=== PATIENT | female | born 1995 | race Caucasian/White ===

== ENCOUNTER 2021-04-15 03:27 | Emergency (ER) | payer OTHER, SELFPAY ==
[2021-04-15 08:19] LABS: Absolute Lymphocytes (CBC) 3.1 K/uL (0.7-4.9); Basophils % 0.2 % (0-1.3); MPV 7.2 fL (7.6-11.3); RBC Red Blood Cell Count 5.32 M/uL (3.86-4.86)
[2021-04-15 08:32] LABS: ALT/SGPT 63 U/L (12-78); AST/SGOT 42 U/L (15-37); Albumin 3.8 g/dL (3.4-5.0); Alkaline Phosphatase 111 U/L (45-117); BUN Blood Urea Nitrogen 9 mg/dL (7-18); Bicarbonate 27 mmol/L (21-32); Bilirubin Total 0.6 mg/dL (0.2-1.0); Glucose Level 292 mg/dL (74-106); Potassium 3.8 mmol/L (3.5-5.1); Protein, Total 7.9 g/dL (6.4-8.2); Sodium Level 137 mmol/L (136-145)
--- NOTE | 2021-04-15 09:12 | RAD REPORT ---
EXAM DESCRIPTION: US - Transvaginal Study Probe - 04/15/2021 7:54 am CLINICAL HISTORY: vaginal bleeding, IUD placement Pelvic pain. COMPARISON: No comparisons FINDINGS: The uterus is normal in size, shape and echotexture. The uterus measures 6.7 x 4.2 x 3.8 c m. IUD noted in appropriate location within the endometrial canal. Neither ovary was well seen due to bowel shadowing. No adnexal masses. No significant pelvic ascites. IMPRESSION: IUD is appropriately located in the fundal endometrium.
--- NOTE | 2021-04-15 09:56 | ER ---
Nurse's Notes [facility] Name: Gregorio Szymanski Age: 25 yrs Sex: Female : 1995 Arrival Date: 04/15/2021 Time: 03:31 Bed 15 Private MD: Diagnosis: Abnormal uterine and vaginal bleeding, unspecified Presentation: 04/15 04:09 Chief complaint: Patient states: Pt states she believes her IUD (implanted 02/11/2021) wg may have become dislodged. States she is on her period and thought her flow was slightly heavier than normal. Pt states that it digitally feels like the IUD is lower. Pt denies any trauma. Pt states she has mild discomfort. Pt denies any other symptoms/complaints. Coronavirus screen: Client denies travel out of the [place] in the last 14 days. At this time, the client does not indicate any symptoms associated with coronavirus-19. The client reports previous COVID testing was negative. Date of collection: February 10, 2021. Ebola Screen: Patient negative for fever greater than or equal to 101.5 degrees Fahrenheit, and additional compatible Ebola Virus Disease symptoms Patient denies exposure to infectious person. Patient denies travel to an Ebola-affected area in the 21 days before illness onset. No symptoms or risks identified at this time. 04:09 Method Of Arrival: Ambulatory wg 04:14 Initial Sepsis Screen: Does the patient meet any 2 criteria? No. Patient's initial wg sepsis screen is negative. Does the patient have a suspected source of infection? No. Patient's initial sepsis screen is negative. Risk Assessment: Do you want to hurt yourself or someone else? Patient reports no desire to harm self or others. Onset of symptoms was April 15, 2021 at 02:00. Care prior to arrival: None. Activity prior to arrival: None. Mechanism of Injury: No Mechanism of Injury. 04:14 Acuity: DENZEL 4 wg Triage Assessment: 04:15 General: Appears in no apparent distress. Behavior is calm, cooperative, appropriate wg for age. Pain: Pain currently is 3 out of 10 on a pain scale. EENT: No deficits noted. Neuro: No deficits noted. Cardiovascular: No deficits noted. Respiratory: No deficits noted. GI: No deficits noted. : Reports pain Pain is 3 out of 10 on a pain scale. vaginal bleeding that is moderate flow. Derm: No deficits noted. Musculoskeletal: No deficits noted. 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 - Social history:: Smoking status: Patient denies any tobacco usage or history of. Patient uses alcohol, but reports only rare drinking. The patient lives with spouse. - Family history:: not pertinent. - Code Status:: Full code. - Coronavirus screen:: The patient has NOT traveled to [place] in the past 14 days. The patient has NOT had contact with known/suspected case of Coronavirus?. - Ebola Screening: : Patient negative for fever greater than or equal to 101.5 degrees Fahrenheit, and additional compatible Ebola Virus Disease symptoms Patient denies exposure to infectious person Patient denies travel to an Ebola-affected area in the 21 days before illness onset No symptoms or risks identified at this time. Assessment: 08:05 General: Appears in no apparent distress. obese, well groomed, unkempt, well nourished. kh1 08:05 Pain: Denies pain. Neuro: No deficits noted. Respiratory: No deficits noted. Denies kh1 shortness of breath at rest. 08:07 Reassessment: assumed care of pt aox3 resp even and unlabored. denies cp. denies sob. kh1 c/o heavy vag bleed and discharge times 1 week. states feel like she can touch IUD. No acute distress noted \T\ this time. 08:17 Reassessment: sleeping quietly in bed. easy to arouse. denies cp denies sob at this kh1 time. NC in place. voices no co,plaints at this time. Vital Signs: 04:09 BP 123 / 72; Pulse 92; Resp 18; Temp 98.5; Pulse Ox 100% on R/A; Weight 172.37 kg; wg Height 5 ft. 4 in. (162.56 cm); Pain 3/10; 07:52 BP 142 / 96; Pulse 113; Resp 22; Temp 99.0(TE); kh1 04:09 Body Mass Index 65.23 (172.37 kg, 162.56 cm) ED Course: 03:31 Patient arrived in ED. bp1 04:15 Triage completed. wg 04:15 Arm band placed on right wrist. wg 07:05 Robbin De Dios PA is PHCP. phil 07:05 Sherif Combs MD is Attending Physician. phil 07:13 Jess Ch is Primary Nurse. kh1 07:51 Transvaginal Study Probe In Process Unspecified. EDMS 08:07 Inserted saline lock: 20 gauge in right antecubital area, using aseptic technique. kh1 Blood collected. 10:51 IV discontinued, intact, bleeding controlled, No redness/swelling at site. Pressure kh1 dressing applied. Administered Medications: No medications were administered Outcome: 09:56 Discharge ordered by . phil 10:51 Discharged to home ambulatory. kh1 10:51 Condition: stable 10:51 Discharge instructions given to patient, Instructed on discharge instructions, follow up and referral plans. Demonstrated understanding of instructions, follow-up care. 10:52 Patient left the ED. kh1 Signatures: Dispatcher [employer] Robbin Vernon PA PA jmm Paniauga, Brittany bp1 Jess Ch kh1 Grayson Lockhart
--- NOTE | 2021-04-15 09:57 | EDPHYS ---
Physician Documentation [facility] Name: Gregorio Szymanski Age: 25 yrs Sex: Female : 1995 Arrival Date: 04/15/2021 Time: 03:31 Bed 15 Private MD: Sherif Park HPI: 04/15 07:36 This 25 yrs old Female presents to ER via Ambulatory with complaints of jmm Vaginal Bleeding, IUD coming out. 07:36 The patient presents with vaginal bleeding that is. Onset: The symptoms/episode jmm began/occurred gradually, 1 week(s) ago. Modifying factors: The symptoms are alleviated by nothing, the symptoms are aggravated by pressure. Associated signs and symptoms: Pertinent positives: vaginal bleeding. Is a 25-year-old female with history of diabetes mellitus, asthma, GERD that presents emerged department with complaints of abnormal vaginal bleeding beginning approximately 1 week ago. Patient states she has some concerns that her IUD, which was placed and January of this year, may not be in her uterus correctly. Patient states she attempted to palpate her cervix and developed increased bleeding. 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 - Social history:: Smoking status: Patient denies any tobacco usage or history of. Patient uses alcohol, but reports only rare drinking. The patient lives with spouse. - Family history:: not pertinent. - Code Status:: Full code. - Coronavirus screen:: The patient has NOT traveled to [place] in the past 14 days. The patient has NOT had contact with known/suspected case of Coronavirus?. - Ebola Screening: : Patient negative for fever greater than or equal to 101.5 degrees Fahrenheit, and additional compatible Ebola Virus Disease symptoms Patient denies exposure to infectious person Patient denies travel to an Ebola-affected area in the 21 days before illness onset No symptoms or risks identified at this time. ROS: 07:36 Constitutional: Negative for fever, chills, and weight loss, Cardiovascular: Negative [facility] for chest pain, palpitations, and edema, Respiratory: Negative for shortness of breath, cough, wheezing, and pleuritic chest pain. 07:36 : Positive for vaginal bleeding. 07:36 All other systems are negative. Exam: 07:36 Constitutional: This is a well developed, well nourished patient who is awake, alert, jmm and in no acute distress. Head/Face: atraumatic. Eyes: EOMI, no conjunctival erythema appreciated ENT: Moist Mucus Membranes Neck: Trachea midline, Supple Chest/axilla: Normal chest wall appearance and motion. Cardiovascular: Regular rate and rhythm. No edema appreciated Respiratory: Normal respirations, no respiratory distress appreciated Abdomen/GI: Non distended, soft Back: Normal ROM Skin: General appearance color normal MS/ Extremity: Moves all extremities, no obvious deformities appreciated, no edema noted to the lower extremities Neuro: Awake and alert, normal gait Psych: Behavior is normal, Mood is normal, Patient is cooperative and pleasant Vital Signs: 04:09 BP 123 / 72; Pulse 92; Resp 18; Temp 98.5; Pulse Ox 100% on R/A; Weight 172.37 kg; wg Height 5 ft. 4 in. (162.56 cm); Pain 3/10; 07:52 BP 142 / 96; Pulse 113; Resp 22; Temp 99.0(TE); kh1 04:09 Body Mass Index 65.23 (172.37 kg, 162.56 cm) MDM: 07:34 Patient medically screened. [facility] 09:55 Data reviewed: vital signs, nurses notes. Counseling: I had a detailed discussion with leena the patient and/or guardian regarding: the historical points, exam findings, and any diagnostic results supporting the discharge/admit diagnosis, lab results, radiology results, the need for outpatient follow up, to return to the emergency department if symptoms worsen or persist or if there are any questions or concerns that arise at home. ED course: Patient is alert nontoxic in appearance in the ED. H\T\H is within reasonable limits. Ultrasound revealed the IUD is in place. Patient is advised to follow-up with FOLDING MACHINE OPERATOR for further evaluation otherwise given strict return precautions. Patient understood and agrees plan of care.. 04/15 07:35 Order name: CBC with Diff; Complete Time: 08:24 [facility] 04/15 07:35 Order name: CMP; Complete Time: 09:32 [facility] 04/15 07:35 Order name: Saline Lock [facility] 04/15 07:35 Order name: Urine Dipstick-Ancillary (obtain specimen) [facility] 04/15 07:51 Order name: Transvaginal Study Probe; Complete Time: 09:32 [facility] 04/15 07:35 Order name: Urine Test (obtain specimen) [facility] Administered Medications: No medications were administered Disposition: 14:51 Co-signature as Attending Physician, Sherif Combs MD I agree with the assessment and [facility] plan of care. Disposition Summary: 04/15/21 09:56 Discharge Ordered Location: Home [facility] Condition: Stable [facility] Diagnosis - Abnormal uterine and vaginal bleeding, unspecified [facility] Followup: [facility] - With: Private Physician - When: 2 - 3 days - Reason: Recheck today's complaints, Continuance of care, Re-evaluation by your physician Discharge Instructions: - Discharge Summary Sheet [facility] - Abnormal Uterine Bleeding [facility] Forms: - Medication Reconciliation Form [facility] - Thank You Letter [facility] - Antibiotic Education [facility] - Prescription Opioid Use [facility] Signatures: Dispatcher [employer] Sherif Root MD MD cha Mickail, Joel, PA PA Grayson Norton Corrections: (The following items were deleted from the chart) 07:51 07:37 Pelvis Complete+US.RAD.BRZ ordered. ALEX JOHNSON
[2021-04-15 11:17] VITALS: O2SAT 100
[2021-04-15 11:19] VITALS: BP 142/96; TEMP 99
== END 2021-04-15 10:52 | disposition home or self-care (01) ==
LOC: ER 03:27
DX: N93.9 Abnormal uterine and vaginal bleeding, unspecified (principal); E11.9 Type 2 diabetes mellitus without complications; Z88.0 Allergy status to penicillin
CPT/HCPCS: 36415; 76830; 80053; 85025; 99283

== ENCOUNTER 2021-09-07 18:56 | Emergency (ER) | payer OTHER ==
[2021-09-07 21:06] LABS: Absolute Lymphocytes (CBC) 3.1 K/uL (0.7-4.9); Hematocrit 39.9 % (36.0-45.0); Lymphocytes % 26.4 % (15.3-44.8); MPV 6.6 fL (7.6-11.3); RBC Red Blood Cell Count 5.37 M/uL (3.86-4.86)
[2021-09-07 21:09] LABS: Protime INR 1.01
[2021-09-07 21:28] LABS: ALT/SGPT 37 U/L (12-78); AST/SGOT 24 U/L (15-37); Albumin 3.7 g/dL (3.4-5.0); Alkaline Phosphatase 95 U/L (45-117); BUN Blood Urea Nitrogen 9 mg/dL (7-18); Bicarbonate 24 mmol/L (21-32); Bilirubin Direct 0.1 mg/dL (0-0.2); Bilirubin Total 0.4 mg/dL (0.2-1.0); Glucose Level 127 mg/dL (74-106); Magnesium 2.2 mg/dL (1.8-2.4); NT PRO-BNP 15 pg/mL (<125); Protein, Total 8.3 g/dL (6.4-8.2); Sodium Level 138 mmol/L (136-145)
--- NOTE | 2021-09-07 21:47 | RAD REPORT ---
EXAM DESCRIPTION: USExtrem Venous W Compress Bil09/07/2021 9:32 pm CLINICAL HISTORY: Leg swelling COMPARISON: none FINDINGS: The common femoral, superficial femoral, popliteal and posterior tibial veins bilaterally are compressible and demonstrate augmentation. Doppler demonstrates good flow. IMPRESSION: No evidence of deep venous thrombosis involving either lower extremity.
--- NOTE | 2021-09-07 22:39 | EDPHYS ---
Physician Documentation [facility] Name: Gregorio Szymanski Age: 26 yrs Sex: Female : 1995 Arrival Date: 09/07/2021 Time: 19:00 Bed 9 Private MD: ED Physician Justin Rodriguez HPI: 09/07 22:36 This 26 yrs old Female presents to ER via Ambulatory with complaints of Leg Swelling. kb 22:36 The patient presents with a history of heart racing. Context: The symptoms occur at kb rest. Onset: The symptoms/episode began/occurred today. Duration: The patient or guardian reports multiple episodes, that are intermittent, with no pattern. Modifying factors: The symptoms are aggravated by nothing. The symptoms are alleviated by nothing. Associated signs and symptoms: The patient has no apparent associated signs or symptoms. Severity of symptoms: At their worst the symptoms were mild in the emergency department the symptoms have resolved. The patient has not experienced similar symptoms in the past. The patient has not recently seen a physician. Pt reports lower extremity swelling for a while and palpitations that have been intermittent today. Historical: - Allergies: 19:42 PENICILLINS; mk - PMHx: 19:42 Asthma; diabetes mellitus; Gastroesophageal reflux disease; mk - Immunization history:: Adult Immunizations up to date, Client reports receiving the 2nd dose of the Covid vaccine. - Social history:: Smoking status: Patient denies any tobacco usage or history of. ROS: 22:34 Constitutional: Negative for fever, chills, and weight loss. kb 22:34 Cardiovascular: Positive for edema, palpitations, Negative for chest pain. 22:34 All other systems are negative. Exam: 22:34 Constitutional: This is a well developed, well nourished patient who is awake, alert, kb and in no acute distress. Head/Face: Normocephalic, atraumatic. ENT: Moist Mucous membranes Cardiovascular: Regular rate and rhythm with a normal S1 and S2. No gallops, murmurs, or rubs. No pulse deficits. Respiratory: Respirations even and unlabored. No increased work of breathing. Talking in full sentences Skin: Warm, dry with normal turgor. Normal color. Neuro: Awake and alert, GCS 15, oriented to person, place, time, and situation. Moves all extremities. Normal gait. Psych: Awake, alert, with orientation to person, place and time. Behavior, mood, and affect are within normal limits. 22:34 Musculoskeletal/extremity: Extremities: grossly normal except: noted in the right lower leg: pain, swelling, tenderness, ROM: intact in all extremities, Circulation is intact in all extremities. Sensation intact. DVT Exam: pain, of the right leg, swelling, of the right leg, tenderness, of the right leg. Vital Signs: 19:31 BP 128 / 88; Pulse 114; Resp 18; Temp 98.5(O); Pulse Ox 100% on R/A; Height 5 ft. 4 in. mk (162.56 cm) (M); 19:42 Weight 166.01 kg; mk 19:42 Height 5 ft. 4 in. (162.56 cm); mk 22:35 BP 134 / 61; Pulse 112; Resp 18; Pulse Ox 97% on R/A; Pain 0/10; ld1 19:42 Body Mass Index 62.82 (166.01 kg, 162.56 cm) MDM: 20:32 Patient medically screened. kb 22:36 Data reviewed: vital signs, nurses notes. Data interpreted: Pulse oximetry: on room air kb is 97 %. Interpretation: normal. Counseling: I had a detailed discussion with the patient and/or guardian regarding: the historical points, exam findings, and any diagnostic results supporting the discharge/admit diagnosis, lab results, radiology results, the need for outpatient follow up, a family practitioner, to return to the emergency department if symptoms worsen or persist or if there are any questions or concerns that arise at home. 09/07 20:53 Order name: Basic Metabolic Panel; Complete Time: 21:30 kb 09/07 20:53 Order name: CBC with Diff; Complete Time: 21:21 kb 09/07 20:53 Order name: LFT's; Complete Time: 21:30 kb 09/07 20:53 Order name: Magnesium; Complete Time: 21:30 kb 09/07 20:53 Order name: NT PRO-BNP; Complete Time: 21:30 kb 09/07 20:53 Order name: PT-INR; Complete Time: 21:21 kb 09/07 20:53 Order name: Troponin HS; Complete Time: 21:30 kb 09/07 20:53 Order name: XRAY Chest (1 view) kb 09/07 20:53 Order name: EKG; Complete Time: 20:54 kb 09/07 20:53 Order name: Cardiac monitoring; Complete Time: 21:02 kb 09/07 20:53 Order name: EKG - Nurse/Tech; Complete Time: 20:54 kb 09/07 20:53 Order name: IV Saline Lock; Complete Time: 21:01 kb 09/07 20:53 Order name: Labs collected and sent; Complete Time: 21:01 kb 09/07 20:53 Order name: US Extremity Venous W Compression Jason; Complete Time: 21:59 kb 09/07 20:53 Order name: O2 Per Protocol; Complete Time: 21:01 kb 09/07 20:53 Order name: O2 Sat Monitoring; Complete Time: 21:01 kb 09/07 22:19 Order name: Vital Signs; Complete Time: 22:35 kb Administered Medications: No medications were administered Disposition: 09/08 00:37 Co-signature as Attending Physician, Justin Rodriguez MD I agree with the assessment and rn plan of care. Attestation: The patient's history, exam findings, diagnostics, and a summary of any interventions or procedures was reviewed in detail with Tracy MCKEON. Disposition Summary: 09/07/21 22:38 Discharge Ordered Location: Home kb Condition: Stable kb Diagnosis - Palpitations kb - Edema, unspecified kb Followup: kb - With: Emergency Department - When: As needed - Reason: Worsening of condition Followup: kb - With: Private Physician - When: 2 - 3 days - Reason: Recheck today's complaints, Continuance of care, Re-evaluation by your physician Discharge Instructions: - Discharge Summary Sheet kb - Palpitations, [id number] kb - Peripheral Edema kb Forms: - Medication Reconciliation Form kb - Thank You Letter kb - Antibiotic Education kb - Prescription Opioid Use kb Signatures: Dispatcher [employer] Tracy Bianchi FNP-C FNP-Justin Orellana MD MD rn Kotarski, Madeline, RN RN mk
--- NOTE | 2021-09-07 22:39 | ER ---
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 Hx DM, asthma and precancerous uterine cells. Coronavirus screen: Vaccine status: Patient reports receiving the 2nd dose of the covid vaccine. moderna. Ebola Screen: Patient negative for fever greater than or equal to 101.5 degrees Fahrenheit, and additional compatible Ebola Virus Disease symptoms. Initial Sepsis Screen: Does the patient meet any 2 criteria? No. Patient's initial sepsis screen is negative. Does the patient have a suspected source of infection? No. Patient's initial sepsis screen is negative. Risk Assessment: Do you want to hurt yourself or someone else? Patient reports no desire to harm self or others. Onset of symptoms was September 05, 2021. 19:31 Method Of Arrival: Ambulatory 19:31 Acuity: DENZEL 3 Triage Assessment: 19:57 General: Appears in no apparent distress. Behavior is cooperative. Pain: Denies pain. Neuro: Level of Consciousness is awake, alert, obeys commands. Cardiovascular: Heart tones S1 S2 present Capillary refill < 3 seconds in bilateral fingers toes Rhythm is sinus tachycardia. Respiratory: Airway is patent Trachea midline Respiratory effort is even, unlabored. Historical: - Allergies: 19:42 PENICILLINS; mk - PMHx: 19:42 Asthma; diabetes mellitus; Gastroesophageal reflux disease; mk - Immunization history:: Adult Immunizations up to date, Client reports receiving the 2nd dose of the Covid vaccine. - Social history:: Smoking status: Patient denies any tobacco usage or history of. Screenin:41 Abuse screen: Denies threats or abuse. Denies injuries from another. Nutritional ab2 screening: No deficits noted. Tuberculosis screening: No symptoms or risk factors identified. Fall Risk None identified. Assessment: 20:36 General: Appears in no apparent distress. comfortable, Behavior is calm, cooperative, ab2 appropriate for age. Pain: Complains of pain in right leg Pain does not radiate. Pain currently is 4 out of 10 on a pain scale. Neuro: No deficits noted. Level of Consciousness is awake, alert, obeys commands, Oriented to person, place, time, situation, Appropriate for age Medical Imaging Director are equal bilaterally Moves all extremities. Gait is steady, Speech is normal, Facial symmetry appears normal. Cardiovascular: Reports palpitations, Denies chest pain, shortness of breath, Patient's skin is warm and dry. Respiratory: Airway is patent Breath sounds are clear bilaterally. GI: No deficits noted. No signs and/or symptoms were reported involving the gastrointestinal system. : No deficits noted. No signs and/or symptoms were reported regarding the genitourinary system. EENT: No deficits noted. No signs and/or symptoms were reported regarding the EENT system. Derm: Skin temperature is cool Reports increased swelling. Musculoskeletal: Reports weakness in right leg. Vital Signs: 19:31 BP 128 / 88; Pulse 114; Resp 18; Temp 98.5(O); Pulse Ox 100% on R/A; Height 5 ft. 4 in. (162.56 cm) (M); 19:42 Weight 166.01 kg; mk 19:42 Height 5 ft. 4 in. (162.56 cm); mk 22:35 BP 134 / 61; Pulse 112; Resp 18; Pulse Ox 97% on R/A; Pain 0/10; ld1 19:42 Body Mass Index 62.82 (166.01 kg, 162.56 cm) ED Course: 19:00 Patient arrived in ED. mr 19:37 Triage completed. 19:37 Arm band placed on. 20:32 Tracy Mojica [facility]C [facility] kb 20:32 Justin Rodriguez MD is Attending Physician. kb 20:42 Patient has correct armband on for positive identification. Bed in low position. Call ab2 light in reach. 20:42 No provider procedures requiring assistance completed. ab2 21:01 Inserted saline lock: 18 gauge in right antecubital area, using aseptic technique. ab2 Blood collected. 21:02 Basic Metabolic Panel Sent. ab2 21:02 CBC with Diff Sent. ab2 21:02 LFT's Sent. ab2 21:02 Magnesium Sent. ab2 21:02 PT-INR Sent. ab2 21:02 NT PRO-BNP Sent. ab2 21:02 Troponin HS Sent. ab2 21:32 US Extremity Venous W Compression Jason In Process Unspecified. EDMS 21:37 XRAY Chest (1 view) In Process Unspecified. EDMS 23:09 IV discontinued, intact, bleeding controlled, No redness/swelling at site. ld1 Administered Medications: No medications were administered Outcome: 22:38 Discharge ordered by . gino 23:08 Discharged to home ambulatory. ld1 23:08 Condition: stable 23:08 Discharge instructions given to patient, Instructed on discharge instructions, follow up and referral plans. Demonstrated understanding of instructions, follow-up care. 23:10 Patient left the ED. ld1 Signatures: Dispatcher [employer] EDMS Tracy Mojica, LINDA SOLUTION DESIGN AND ANALYSIS MANAGER-Kenya Franklin Lauren, RN RN ld1 Lesley Vila, RN RN Mark Camarillo2
[2021-09-07 23:17] VITALS: TEMP 98.5
[2021-09-07 23:18] VITALS: BP 134/61; O2SAT 97
--- NOTE | 2021-09-08 07:52 | RAD REPORT ---
EXAM DESCRIPTION: RAD - Chest Single View - 09/08/2021 6:48 am CLINICAL HISTORY: PALPITATIONS COMPARISON: No comparisons FINDINGS: Lines: None. Lungs: No evidence of edema or pneumonia. Pleural: No significant pleural effusions or pneumothorax. Cardiac: The heart size is within normal limits. Bones: No acute fractures. Other: IMPRESSION: No acute cardiopulmonary disease.
== END 2021-09-07 23:10 | disposition home or self-care (01) ==
LOC: ER 18:56
DX: R00.2 Palpitations (principal); R60.9 Edema, unspecified; Z88.0 Allergy status to penicillin
CPT/HCPCS: 36415; 71045; 80048; 80076; 83735; 83880; 84484; 85025; 85610; 93005; 93970

== ENCOUNTER 2021-11-13 00:33 | Emergency (ER) | payer OTHER ==
--- OUTSIDE RECORDS SUMMARY | 2021-11-13 00:35 | XMS REPORT | Continuity of Care Document ---
:1995 Author Organization [facility] t Address [address] [place] [address] Care Team Providers Name Role Phone Unavailable Unavailable Unavailable Problems This patient has no known problems. Allergies, Adverse Reactions, Alerts This patient has no known allergies or adverse reactions. Medications This patient has no known medications. Procedures This patient has no known procedures. Results Test Description Test Time Test Comments Results Result Comments Source HEMOGLOBIN A1c 2021-10-05 05:22:37 Test Item Value Reference Range Interpretation Comme nts HEMOGLOBIN A1c (test code = 8.7 % 4.2-5.6 H [employer] 90776) GUIDELINES FOR HGB A1C: PREDIABETES/INC REASED RISK . . . . . . . 5.7-6.4% DIAGNOSIS OF DIABETES . . . . . . . . . >=6.5% WITH CONFIRMATION OR APPROPRIATE SYMPTOMS NOTE: ASSAY MA Y BE AFFECTED BY HEMOGLOBINOPATH IES (SICKLE CELL ANEMIA, S-C DIS EASE, OTHERS) OR ARTIFICIALLY LO WERED BY DECREASED RED CELL SURVIV AL (HEMOLYTIC ANEMIAS, BLOOD LOSS, ETC.). CONSIDER ALTERNATE TESTI NG OR LABORATORY CONSULTATION. COMPREHENSIVE METABOLIC [id number] 04:02:34 Test Item Value Reference Range Interpretation Comments GLUCOSE (test code = 147 MG/DL 70-99 H 2216) BUN (test code = 9 MG/DL -20 2207) CREATININE (test 0.51 MG/DL 0.60-1.30 L code = 2214) eGFR (2020 CKD-EPI) 130 >60 (test code = 90954) ML/MIN/1.73 CALC BUN/CREAT (test 18 RATIO 6-28 code = 2235) SODIUM (test code = 140 MEQ/L 137-159 4791) POTASSIUM (test code 4.5 MEQ/L 3.5-5.4 = 8) CHLORIDE (test code 100 MEQ/L 95-107 = 2215) CARBON DIOXIDE (test 25 MEQ/L 19-31 code = 2206) CALCIUM (test code = 9.4 MG/DL 8.5-10.5 220) PROTEIN, TOTAL (test 7.4 G/DL 6.1-8.3 code = 2229) ALBUMIN (test code = 4.3 G/DL 3.5-5.2 220) CALC GLOBULIN (test 3.1 G/DL 1.9-3.7 code = 2240) CALC A/G RATIO (test 1.4 RATIO 1.0-2.6 code = 2234) BILIRUBIN, TOTAL 0.4 MG/DL See_Comment [Automated message] (test code = 2207) The syste m which generated this result transmit aidan reference range : <=1.2. The refe rence range was not u sed to interpret th is result as normal/abnormal . ALKALINE PHOSPHATASE 93 U/L 40-112 (test code = 2204) AST (test code = 22 U/L 9-40 2217) ALT (test code = 25 U/L 5-40 2218) LIPID [id number] 04:02:34 Test Item Value Reference Range Interpretation Comments CHOLESTEROL (test 194 MG/DL <200 code = 2210) TRIGLYCERIDES (test 185 MG/DL <150 H code = 2232) HDL CHOLESTEROL (test 35 MG/DL >39 L code = 2220) CALC LDL CHOL (test 128 MG/DL <100 H NOTE: C ALCULATED LDL code = 2237) IS BASED ON MELISSA-GARCÍA METHOD WHICHINCLUDES ADJUSTABLE TRIGLYCERIDE:VL DL CHOLESTEROL RAT IO.THIS FACTOR VARIES B Y MEASURED TRIGLY CERIDE AND NON-HDLCHOL ESTEROL CONCENTRATIONS WITH INCREASED CALCU LATED LDL SEENIN HIGH ER TRIGLYCERIDE OR LOWER NON-HDL SPECIME NS. FOR MOREINFORMATION , SEE CLIENT ANNOUNCE MENT AT [email or web address] RISK RATIO LDL/HDL 3.66 RATIO <3.22 H (test code = 2238) HIV 1/2 4TH GEN, RFLX [id number] 03:54:00 Test Item Value Reference Range Interpretation Comments HIV 1/2 4TH GEN, RFLX CONF (test NON-REACTIVE NON-REACTIVE code = 3514) HEPATITIS PANEL, [id number] 03:54:00 Test Item Value Reference Range Interpretation Comments HEPATITIS A IgM (test NON-REACTIVE NON-REACTIVE code = 78212) HEPATITIS B CORE IgM NON-REACTIVE NON-REACTIVE (test code = 4644) HEPATITIS B SURF AG NON-REACTIVE NON-REACTIVE (test code = 2739) HEPATITIS C ANTIBODY NON-REACTIVE NON-REACTIVE (test code = 4675) INTERPRETATION (NOTE) Hepatiti s A HEPATITIS A: (test serology shows no code = 2552) evidence of acu te hepatitis A. INTERPRETATION (NOTE) Hepatiti s B HEPATITIS B: (test serology shows no code = 87646) evidence of ac solomon hepatitis B and no indication of exposure to hepatitis B vir us in the previous si xto eight months. INTERPRETATION (NOTE) Hepatiti s C HEPATITIS C: (test serology shows no code = 36370) evidence of ex posure to hepatitisC v irus at this time. It can take up to 12 months after exposure tothe hepatitis C vir us for antibodies to become detectab le in the blood i n certain patient s. UNLESS OTHE RWISE INDICATED, ALL TESTING PERFORM ED ATCLINICAL PATH [facility], [facility]. [address] [place] [address] 4 UPHOLSTERER HELPER: ZEESHAN SRIVASTAVA M.D. CLIA NUMBER [id number] CAP ACCREDITATION N O. [id number] CBC W/AUTO DIFF WITH [id number] 03:49:45 Test Item Value Reference Range Interpretation Comments WBC (test code = 10.4 K/UL 3.5-11.0 1001) RBC (test code = 5.34 M/UL 3.80-5.40 1002) HEMOGLOBIN (test code 12.8 G/DL 11.5-15.5 = 1003) HEMATOCRIT (test code 38.7 % 34.0-45.0 = 1004) MCV (test code = 72.5 fL 80.0-99.0 L 1005) MCH (test code = 24.0 PG 25.0-33.0 L 1006) MCHC (test code = 33.1 G/DL 31.0-36.0 1007) RDW (test code = 15.7 % 11.5-15.0 H 1038) NEUTROPHILS (test 60.3 % code = 1008) LYMPHOCYTES (test 30.9 % code = 1010) MONOCYTES (test code 4.5 % = 1011) EOSINOPHILS (test 2.9 % code = 1012) BASOPHILS (test code 0.5 % = 1013) IMMATURE GRANULOCYTES 0.9 % (test code = 1036) NUCLEATED RBCS (test 0.0 /100 See_Comment [Autom ated code = 1065) WBC'S message] The sy stem which generated this result transmitted reference range : 0.0. The refere nce range was not u sed to interpret th is result as normal/abnormal . PLATELET COUNT (test 357 K/UL 130-400 code = 1015) ABSOLUTE NEUTROPHILS 6.30 K/UL 1.50-7.50 (test code = 1066) ABSOLUTE LYMPHOCYTES 3.22 K/UL 1.00-4.00 (test code = 1067) ABSOLUTE MONOCYTES 0.47 K/UL 0.20-1.00 (test code = 1068) ABSOLUTE EOSINOPHILS 0.30 K/UL 0.00-0.50 (test code = 1040) ABSOLUTE BASOPHILS 0.05 K/UL 0.00-0.20 (test code = 1069) ABS IMMATURE 0.09 K/UL 0.00-0.10 GRANULOCYTES (test code = 1020) ABS NUCLEATED RBCS 0.00 K/UL 0.00-0.11 (test code = 05853)
[2021-11-13 02:47] LABS: Absolute Lymphocytes (CBC) 2.6 K/uL (0.7-4.9); Hematocrit 38.3 % (36.0-45.0); Lymphocytes % 25.6 % (15.3-44.8); RBC Red Blood Cell Count 5.12 M/uL (3.86-4.86)
[2021-11-13 03:10] LABS: BUN Blood Urea Nitrogen 10 mg/dL (7-18); Bicarbonate 27 mmol/L (21-32); Glucose Level 236 mg/dL (74-106); NT PRO-BNP 12 pg/mL (<125); Potassium 3.6 mmol/L (3.5-5.1); Sodium Level 137 mmol/L (136-145)
[2021-11-13 03:14] LABS: Troponin High Sensitivity < 3.0 pg/mL (<58.9)
[2021-11-13 03:32] LABS: SARS-COV-2 RT PCR NEGATIVE (NEGATIVE)
--- NOTE | 2021-11-13 05:42 | ER ---
Nurse's Notes [facility] Name: Gregorio Szymanski Age: 26 yrs Sex: Female : 1995 Arrival Date: 11/13/2021 Time: 00:35 Bed 16 Private MD: Diagnosis: Palpitations;Pain in left leg;Pain in right leg Presentation: 11/13 00:42 Chief complaint: Patient states: "palpitations since Mumtaz and a cough a few weeks, bjorn since I had Covid". Coronavirus screen: Vaccine status: Patient reports receiving the 2nd dose of the covid vaccine. Patient reports having had a previously documented Covid positive illness. Ebola Screen: Patient negative for fever greater than or equal to 101.5 degrees Fahrenheit, and additional compatible Ebola Virus Disease symptoms Patient denies exposure to infectious person. Patient denies travel to an Ebola-affected area in the 21 days before illness onset. Initial Sepsis Screen: Does the patient meet any 2 criteria? No. Patient's initial sepsis screen is negative. Does the patient have a suspected source of infection? No. Patient's initial sepsis screen is negative. Risk Assessment: Do you want to hurt yourself or someone else? Patient reports no desire to harm self or others. Onset of symptoms was September 21, 2021. 00:42 Method Of Arrival: Ambulatory bjorn 00:42 Acuity: DENZEL 3 bjorn Triage Assessment: 00:45 General: Appears in no apparent distress. comfortable. General: Behavior is calm, bjorn cooperative. Pain: Complains of pain in right leg shooting intermittent pain. 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 - Social history:: Smoking status: Patient denies any tobacco usage or history of. Screenin:02 Abuse screen: Denies threats or abuse. Nutritional screening: No deficits noted. bp Tuberculosis screening: No symptoms or risk factors identified. Never had TB. Fall Risk None identified. Assessment: 03:04 Reassessment: All labs collected and sent. Ekg done. . bp 04:30 Reassessment: Patient appears in no apparent distress at this time. The pt remains in sv1 NAD and I recv'd report on her, from the off-going RN. We are awaiting results, for dispo. Vital Signs: 00:42 BP 119 / 70; Pulse 118; Resp 18; Temp 98.5; Pulse Ox 100% on R/A; Pain 0/10; bjorn 00:48 BP 119 / 70; Pulse 118; Resp 18; Temp 98.5; Pulse Ox 100% on R/A; Pain 0/10; bjorn 03:02 BP 138 / 126 RA Sitting (auto/reg); Pulse 102 MON; Resp 19 S; Pulse Ox 100% on R/A; bp Pain 0/10; 04:23 BP 99 / 62; Pulse 98; Resp 18; Temp 98.5; Pulse Ox 99% on R/A; Pain 0/10; sv1 06:13 BP 106 / 62; Pulse 92; Resp 18; Temp 98.5; Pulse Ox 100% on R/A; Pain 0/10; bjorn ED Course: 00:35 Patient arrived in ED. kc5 00:45 Triage completed. bjorn 00:48 Arm band placed on right wrist. bjorn 00:49 Robbin De Dios PA is PHCP. jmm 00:49 Eron Fortune DO is Attending Physician. jmm 01:47 Dipak Randle, RN is Primary Nurse. bp 01:57 XRAY Chest (1 view) In Process Unspecified. EDMS 02:23 PROBNP Sent. bp 02:32 Basic Metabolic Panel Sent. bp 02:32 CBC with Diff Sent. bp 02:32 Troponin HS Sent. bp 02:54 PROBNP Sent. bp 03:02 Patient has correct armband on for positive identification. bp 03:02 No provider procedures requiring assistance completed. Inserted saline lock: 20 gauge bp in left antecubital area, using aseptic technique. 04:08 US Extremity Venous W Compression Jason In Process Unspecified. EDMS 06:14 intact, bleeding controlled, No redness/swelling at site. Pressure dressing applied. bjorn Administered Medications: No medications were administered Outcome: 04:29 Condition: stable sv1 05:41 Discharge ordered by . ms3 06:14 Discharged to home ambulatory, with family. bjorn 06:14 Discharge instructions given to patient, Instructed on discharge instructions, follow up and referral plans. Demonstrated understanding of instructions, follow-up care. 06:14 Patient left the ED. bjorn Signatures: Dispatcher [employer] EDMS Robbin De Dios PA PA jmm Peltier, Brian, RN RN bp Eron Fortune, DO ms3 Cleopatra Siu kc5 Little Trejo RN RN bjorn Rajiv Abreu RN RN sv1
--- NOTE | 2021-11-13 05:42 | EDPHYS ---
Physician Documentation [facility] Name: Gregorio Szymanski Age: 26 yrs Sex: Female : 1995 Arrival Date: 11/13/2021 Time: 00:35 Bed 16 Private MD: ED Physician Eron Fortune HPI: 11/13 00:53 This 26 yrs old Female presents to ER via Ambulatory with complaints of Palpitations, jmm Leg Pain. 00:53 The patient presents with swelling. jmm 00:53 Onset: The symptoms/episode began/occurred gradually, 2 week(s) ago. Modifying factors: jmm The symptoms are alleviated by nothing. the symptoms are aggravated by nothing. Is a 26-year-old female with history of diabetes mellitus, asthma, GERD that presents emerged department with complaints of progressively worsening lower extremity swelling beginning approximately 1 month ago worsening over the past 2 weeks. Patient states now she has shortness of breath and cough. Also complains of episodes of palpitations. Particular patient has more pain in the right leg around the popliteal region. Denies fever.. 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 - Social history:: Smoking status: Patient denies any tobacco usage or history of. ROS: 00:53 Constitutional: Negative for fever, chills, and weight loss. jmm 00:53 Cardiovascular: Positive for chest pain, palpitations. 00:53 Respiratory: Positive for cough. 00:53 MS/extremity: Positive for swelling. 00:53 All other systems are negative. Exam: 00:53 Constitutional: This is a well developed, well nourished patient who is awake, alert, jmm and in no acute distress. Head/Face: atraumatic. Eyes: EOMI, no conjunctival erythema appreciated ENT: Moist Mucus Membranes Neck: Trachea midline, Supple Chest/axilla: Normal chest wall appearance and motion. Cardiovascular: Regular rate and rhythm. No edema appreciated Respiratory: Normal respirations, no respiratory distress appreciated Abdomen/GI: Non distended, soft Back: Normal ROM Skin: General appearance color normal MS/ Extremity: Moves all extremities, no obvious deformities appreciated, no edema noted to the lower extremities Neuro: Awake and alert Psych: Behavior is normal, Mood is normal, Patient is cooperative and pleasant 02:47 ECG was reviewed by the Attending Physician. ms3 Vital Signs: 00:42 BP 119 / 70; Pulse 118; Resp 18; Temp 98.5; Pulse Ox 100% on R/A; Pain 0/10; bjorn 00:48 BP 119 / 70; Pulse 118; Resp 18; Temp 98.5; Pulse Ox 100% on R/A; Pain 0/10; bjorn 03:02 BP 138 / 126 RA Sitting (auto/reg); Pulse 102 MON; Resp 19 S; Pulse Ox 100% on R/A; bp Pain 0/10; 04:23 BP 99 / 62; Pulse 98; Resp 18; Temp 98.5; Pulse Ox 99% on R/A; Pain 0/10; sv1 06:13 BP 106 / 62; Pulse 92; Resp 18; Temp 98.5; Pulse Ox 100% on R/A; Pain 0/10; bjorn MDM: 00:53 Patient medically screened. [facility] 02:50 Data reviewed: vital signs, nurses notes. Counseling: I had a detailed discussion with braydon the patient and/or guardian regarding: the historical points, exam findings, and any diagnostic results supporting the discharge/admit diagnosis. Transition of care: After a detail discussion of the patient's case, care is transferred to Eron Fortune DO. 05:39 Data reviewed: lab test result(s), radiologic studies, ultrasound. Counseling: I had a ms3 detailed discussion with the patient and/or guardian regarding: the historical points, exam findings, and any diagnostic results supporting the discharge/admit diagnosis, lab results, radiology results, the need for outpatient follow up, to return to the emergency department if symptoms worsen or persist or if there are any questions or concerns that arise at home. ED course: Discussed the labs, ultrasound with patient. Patient to follow-up with her primary care physician as discussed. All questions were answered. Return precautions discussed include worsening symptoms, or any other concerns. Reevaluation patient is alert and oriented x4, no apparent distress, nontoxic, ambulatory emergency Bartman, speaking full sentences. 11/13 00:55 Order name: Basic Metabolic Panel; Complete Time: 03:34 [facility] 11/13 00:55 Order name: CBC with Diff; Complete Time: 02:51 [facility] 11/13 00:55 Order name: Troponin HS; Complete Time: 03:34 [facility] 11/13 00:55 Order name: XRAY Chest (1 view) [facility] 11/13 00:55 Order name: COVID-19/FLU A+B (Document "Date of Onset" if Symptomatic); Complete Time: jmm 03:34 11/13 00:56 Order name: PROBNP; Complete Time: 03:34 [facility] 11/13 00:55 Order name: EKG; Complete Time: 01:35 [facility] 11/13 00:55 Order name: Cardiac monitoring; Complete Time: 02:55 [facility] 11/13 00:55 Order name: EKG - Nurse/Tech; Complete Time: 02:55 [facility] 11/13 00:55 Order name: IV Saline Lock; Complete Time: 02:33 [facility] 11/13 00:55 Order name: Labs collected and sent; Complete Time: 02:32 [facility] 11/13 00:55 Order name: O2 Per Protocol; Complete Time: 02:33 [facility] 11/13 00:55 Order name: O2 Sat Monitoring; Complete Time: 02:32 [facility] 11/13 00:56 Order name: US Extremity Venous W Compression Jason [facility] EC:47 Rate is 94 beats/min. Rhythm is regular. QRS [place] is Normal. AR interval is normal. QRS ms3 interval is normal. Clinical impression: Normal ECG. Interpreted by me. Administered Medications: No medications were administered Disposition: 05:42 Co-signature as Attending Physician, Eron Fortune DO. ms3 Disposition Summary: 11/13/21 05:41 Discharge Ordered Location: Home ms3 Condition: Stable ms3 Diagnosis - Palpitations ms3 - Pain in left leg ms3 - Pain in right leg ms3 Followup: ms3 - With: Private Physician - When: 2 - 3 days - Reason: Re-evaluation by your physician Discharge Instructions: - Discharge Summary Sheet ms3 - Palpitations ms3 Forms: - Medication Reconciliation Form ms3 - Thank You Letter ms3 - Antibiotic Education ms3 - Prescription Opioid Use ms3 Signatures: Dispatcher [employer] Robbin Vernon PA PA jmm Sims, Marcus, DO DO ms3 Little Trejo, RN RN bjorn
[2021-11-13 06:31] VITALS: TEMP 98.5
[2021-11-13 06:34] VITALS: BP 106/62; O2SAT 100
--- NOTE | 2021-11-14 21:10 | RAD REPORT ---
EXAM DESCRIPTION: US - Extrem Venous W Compress Jason - 11/13/2021 6:31 am CLINICAL HISTORY: The patient is 26 years old and is Female; PAIN TECHNIQUE: Real-time duplex ultrasound scan of the bilateral lower extremity veins integrating B-mod e two-dimensional vascular structure, Doppler spectral analysis, color flow Doppler imaging and compr ession. COMPARISON: No relevant prior studies available. FINDINGS: Right deep veins: Unremarkable. No DVT in the right common femoral, femoral, proximal deep femoral or popliteal veins. The veins demonstrate normal color flow, are normally compressible , with normal phasic flow and/or augmentation response. Right superficial veins: Unremarkable. No thrombus in the visualized right great saphenous vein . Left deep veins: Unremarkable. No DVT in the left common femoral, femoral, proximal deep femora l or popliteal veins. The veins demonstrate normal color flow, are normally compressible, with norm al phasic flow and/or augmentation response. Left superficial veins: Unremarkable. No thrombus in the visualized left great saphenous vein. Soft tissues: No acute findings. No popliteal cyst. IMPRESSION: No evidence of acute DVT, bilateral lower extremities. Electronically signed by: Sienna Cano MD 11/13/2021 5:00 AM CDT Due to temporary technical issues with the PACS/Fluency reporting system, reports are being signed by the in house radiologists without review as a courtesy to insure prompt reporting. The interpreting radiologist is fully responsible for the content of the report.
--- NOTE | 2021-11-14 21:14 | RAD REPORT ---
EXAM DESCRIPTION: RAD - Chest Single View - 11/13/2021 1:56 am CLINICAL HISTORY: The patient is 26 years old and is Female; SOB TECHNIQUE: Frontal view of the chest. COMPARISON: No relevant prior studies available. FINDINGS: Lungs: Opacification of the left lung base which may be due to overlying soft tissue, at electasis, or airspace disease. Pleural space: Unremarkable. No pneumothorax. Heart: Unremarkable. Mediastinum: Unremarkable. Bones/joints: Unremarkable. IMPRESSION: Opacification of the left lung base which may be due to overlying soft tissue, atelectas is, or airspace disease. Electronically signed by: David Nagy MD 11/13/2021 2:09 AM CDT Due to temporary technical issues with the PACS/Fluency reporting system, reports are being signed by the in house radiologists without review as a courtesy to insure prompt reporting. The interpreting radiologist is fully responsible for the content of the report.
== END 2021-11-13 06:14 | disposition home or self-care (01) ==
LOC: ER 00:33
DX: R00.2 Palpitations (principal); M79.605 Pain in left leg; M79.604 Pain in right leg; E11.9 Type 2 diabetes mellitus without complications; Z88.0 Allergy status to penicillin; Z20.822 Contact with and (suspected) exposure to COVID-19
CPT/HCPCS: 85025; 80048; 36415; 84484; 83880; 0240U; 71045; 93970; 99284

== ENCOUNTER 2023-07-15 11:00 | Emergency (ER) | payer OTHER ==
--- OUTSIDE RECORDS SUMMARY | 2023-07-15 11:06 | XMS REPORT | Continuity of Care Document ---
:1995 Author Organization [facility] t Address [address] [facility] [address] [place] [address] Care Team Providers Name Role Phone CerdaBecky Klein Primary Care Physician [phone] COLLEEN OLSEN Attending Clinician Unavailable MAGALY FLANNERY Attending Clinician Unavailable CLEMENTE CÁRDENAS Attending Clinician Unavailable LAB90 Attending Clinician Unavailable ANDREW BAUER Attending Clinician Unavailable ONEIL IL Attending Clinician Unavailable MD CE Attending Clinician Unavailable PL, TECH 1 Attending Clinician Unavailable THOMAS CAMPOS Attending Clinician Unavailable Payers Payer Name Policy Type Policy Number Effective Date Expiration Date S josie AETNA [facility] 9 [id number] 2022 00:00:00 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 2: 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 ON Problems Condition Condition Condition Status Onset Resolution Last Treating Co mments Source Name Details Category Date Date Treatment Clinician Date Immunodefi Immunodefi Disease Active K elsey ciency due ciency due 6-19 Se ybold to to 00:00: - conditions conditions 00 Ex terna classified classified l elsewhere elsewhere (multi (multi HCC) HCC) 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 Seybold diabetic diabetic 00:00: - mixed mixed 00 Externa hyperlipid hyperlipid l emia emia (multi (multi HCC) HCC) Depression Depression Disease Active K elsey with with 3-07 Seybold anxiety anxiety 00:00: - 00 Externa l Gastroesop Gastroesop Disease Active K elsey hageal hageal 3-07 Seybold reflux reflux 00:00: - disease disease 00 Externa without without l esophagiti esophagiti s s Seasonal Seasonal Disease Active Kelse y allergic allergic 3-07 Seybol d rhinitis rhinitis 00:00: - due to due to 00 Externa pollen pollen l Mild Mild Disease Active Milagro intermitte intermitte 3-07 Se ybold nt asthma nt asthma 00:00: - without without 00 Externa complicati complicati l on on ([facility]) ([facility]) Snoring Snoring Disease Active Milagro 3-07 Seybold 00:00: - 00 Externa l Primary Primary Disease Active Milagro insomnia insomnia 3-07 Seybol d 00:00: - 00 Externa l Primary Primary Disease Active Milagro hypertensi hypertensi 3-07 Se ybold on on 00:00: - 00 Externa l Morbid Morbid Disease Active Milagro obesity obesity 3-07 Seybold with BMI with BMI 00:00: - of of 00 Externa 60.0-69.9, 60.0-69.9, l adult adult Allergies, Adverse Reactions, Alerts Allergy Allergy Status Severity Reaction(s) Onset Inactive Treating Comm ents Source Name Type Date Date Clinician Penicill Propensi Active ins - ty to 7-16 CLASS adverse 00:00: reaction 00 to drug Penicill Propensi Active ins ty to 2-15 adverse 00:00: reaction 00 to drug Penicill Propensi Active Hives Milagro ins ty to 2-15 Seybold adverse 00:00: - reaction 00 Externa s l Social History Social Habit Start Date Stop Date Quantity Comments Source Gender identity 2022-10-19 Identifies as Milagro Veronica 13:02:25 female gender - External (finding) Sexual orientation Milagro Martin - External Alcohol intake 2023-07-10 2023-07-10 Ex-drinker Milagro rodriguez 00:00:00 00:00:00 (finding) - External History of Social 2023-05-08 2023-05-08 Milagro Martin function 00:00:00 00:00:00 - External Education - What is 2023-01-30 2023-01-30 High school [employer] the highest level 00:00:00 00:00:00 graduate - Exter nal of school you have completed or the highest degree you have received? Tobacco use and 2022-10-25 2022-10-25 Smokeless tobacco Devonte Martin exposure 00:00:00 00:00:00 non-user - External Sex Ass[birth year] At [birth year] F Milagro muse 00:00:00 00:00:00 - External Smoking Status Start Date Stop Date Source Never smoked tobacco Milagro Dobson old - External Medications Ordered Filled Start Stop Current Ordering Indication Dosage Frequency Signature Comments Components Source Medication Medication Date Date Medication? Clinician (SIG) Name Name Levonorgest 2022-08 Yes Milagro rel 1-20 Seybold (MIRENA, 52 09:30: - MG, IU) 18 Externa l Glucose 2022-08 Yes [id number] 1{each} 1 each by Milagro Blood in -20 3 other Seybold vitro Strip 00:00: route 2 - 00 times Externa daily. l glipiZIDE 5 2022-08 Yes 5mg Take 1 Courtney ey MG oral 1-20 tablet (5 Seybold Tablet 00:00: mg total) - 00 by mouth Externa in the l morning and 1 tablet (5 mg total) in the evening. Take before meals. hydroCHLORO 2022-08 Yes [id number] 12.5mg Take 1 Milagro thiazide 1-20 capsule Seybold 12.5 MG 00:00: (12.5 mg - oral 00 total) by Externa Capsule mouth l daily As needed for swelling in the ankles. Omeprazole Yes [id number] 20mg TAKE 1 Milagro 20 MG oral 9-11 CAPSULE BY Sey bold Delayed 00:00: MOUTH - Release 00 EVERY DAY Externa Capsule l Lisinopril Yes [id number] 2.5mg TAKE 1 Milagro 2.5 MG oral 9-11 TABLET BY Sey bold Tablet 00:00: MOUTH - 00 EVERY DAY Externa l Atorvastati Yes [id number] 20mg TAKE 1 Milagro n Calcium 9-11 3 TABLET BY Seybo ld 20 MG oral 00:00: MOUTH - Tablet 00 EVERY DAY Externa l Levonorgest Yes Milagro rel 6-12 Seybold (MIRENA, 52 09:56: - MG, IU) 19 Externa l Levonorgest 2022-0 Yes Milagro rel 6-12 Seybold (MIRENA, 52 09:56: - MG, IU) 19 Externa l glipiZIDE 2022-0 Yes [id number] 10mg Take 1 Milagro 10 MG oral 6-12 3 tablet (10 Sey bold Tablet 00:00: mg total) - 00 by mouth Externa daily l (before a meal) Pioglitazon 2022-0 Yes [id number] 15mg Take 1 Milagro e HCl 6-12 3 tablet (15 Seybold (Actos) 15 00:00: mg total) - MG oral 00 by mouth Externa Tablet daily l Pioglitazon 2022-0 Yes [id number] 15mg Take 1 Milagro e HCl 6-12 3 tablet (15 Seybold (Actos) 15 00:00: mg total) - MG oral 00 by mouth Externa Tablet daily l glipiZIDE 2022-0 Yes [id number] 10mg Take 1 Milagro 10 MG oral 6-12 3 tablet (10 Sey bold Tablet 00:00: mg total) - 00 by mouth Externa daily l (before a meal) Pioglitazon 2022-0 Yes [id number] 15mg Take 1 Milagro e HCl 6-12 3 tablet (15 Seybold (Actos) 15 00:00: mg total) - MG oral 00 by mouth Externa Tablet daily l glipiZIDE 2022-0 3- No [id number] 10mg Take 1 Milagro 10 MG oral 6-12 11-20 3 tablet (10 Se ybold Tablet 00:00: 00:00 mg total) - 00 :00 by mouth Externa daily l (before a meal) Pioglitazon 2022-0 2022- No [id number] 15mg Take 0.5 Milagro e HCl 6-12 06-12 3 tablets Seybold (Actos) 30 00:00: 00:00 (15 mg - MG oral 00 :00 total) by Externa Tablet mouth l daily Metformin 2022-0 Yes [id number] TAKE 1 Milagro HCl 1000 MG 6-09 3 TABLET BY Sey bold oral Tablet 00:00: MOUTH - 00 TWICE A Externa DAY l Metformin 2022-0 Yes [id number] TAKE 1 Milagro HCl 1000 MG 6-09 3 TABLET BY Sey bold oral Tablet 00:00: MOUTH - 00 TWICE A Externa DAY l Metformin 2022-0 Yes [id number] TAKE 1 Milagro HCl 1000 MG 6-09 3 TABLET BY Sey bold oral Tablet 00:00: MOUTH - 00 TWICE A Externa DAY l Fluoxetine 2022-0 Yes [id number] 20mg Take 1 Milagro HCl 20 MG 6-08 capsule Seybold oral 00:00: (20 mg - Capsule 00 total) by Externa mouth l daily Fluoxetine 2022-0 Yes [id number] 20mg Take 1 Milagro HCl 20 MG 6-08 capsule Seybold oral 00:00: (20 mg - Capsule 00 total) by Externa mouth l daily Fluoxetine 2022-0 Yes [id number] 20mg Take 1 Milagro HCl 20 MG 6-08 capsule Seybold oral 00:00: (20 mg - Capsule 00 total) by Externa mouth l daily Albuterol 2022-0 2022- No Milagro Sulfate 3-07 03-07 Seybold (PROAIR HFA 10:15: 00:00 - IN) 16 :00 Externa l Loratadine 2022-0 202- No Milagro 10 MG oral 3-07 03-07 Seybold TABLET 10:15: 00:00 - DISPERSIBLE 16 :00 Externa l Omeprazole 2022-0 2022- No Milagro 20 MG oral 3-07 03-07 Seybold Delayed 10:15: 00:00 - Release 16 :00 Externa Capsule l Levonorgest 2022-0 Yes Milagro rel 3-07 Seybold (MIRENA, 52 09:58: - MG, IU) 04 Externa l Omeprazole 2022-0 Yes [id number] 20mg Take 1 Milagro 20 MG oral 3-07 capsule Seybol d Delayed 00:00: (20 mg - Release 00 total) by Externa Capsule mouth l daily Loratadine 2022-0 Yes [id number] 10mg Take 1 K elsey 10 MG oral 3-07 tablet (10 Sey bold TABLET 00:00: mg total) - DISPERSIBLE 00 by mouth Exte rna daily l Lisinopril 2022-0 Yes [id number] 2.5mg Take 1 Milagro 2.5 MG oral 3-07 tablet Seybol d Tablet 00:00: (2.5 mg - 00 total) by Externa mouth l daily Atorvastati 2022-0 Yes [id number] 20mg Take 1 Milagro n Calcium 3-07 3 tablet (20 Seyb old 20 MG oral 00:00: mg total) - Tablet 00 by mouth Externa daily l Albuterol 2022-0 Yes [id number] 2{puff} Q4H Inhale 2 Milagro HFA (PROAIR 3-07 puffs into Se ybold HFA) 108 00:00: the lungs - (90 Base) 00 every 4 Externa MCG/ACT IN hours as l AERS needed for wheezing Albuterol 2022-0 Yes [id number] 2{puff} Q4H Inhale 2 Milagro HFA (PROAIR 3-07 puffs into Se ybold HFA) 108 00:00: the lungs - (90 Base) 00 every 4 Externa MCG/ACT IN hours as l AERS needed for wheezing Metformin 2022-0 Yes [id number] 1000mg Take 1 Milagro HCl 1000 MG 3-07 3 tablet Seybol d oral Tablet 00:00: (1,000 mg - 00 total) by Externa mouth 2 l times daily Omeprazole 2022-0 Yes [id number] 20mg Take 1 Milagro 20 MG oral 3-07 capsule Seybol d Delayed 00:00: (20 mg - Release 00 total) by Externa Capsule mouth l daily Loratadine 2022-0 Yes [id number] 10mg Take 1 K elsey 10 MG oral 3-07 tablet (10 Sey bold TABLET 00:00: mg total) - DISPERSIBLE 00 by mouth Exte rna daily l Lisinopril 2022-0 Yes [id number] 2.5mg Take 1 Milagro 2.5 MG oral 3-07 tablet Seybol d Tablet 00:00: (2.5 mg - 00 total) by Externa mouth l daily glipiZIDE 5 2022-0 Yes [id number] 5mg Take 1 Milagro MG oral 3-07 3 tablet (5 Seybold Tablet 00:00: mg total) - 00 by mouth Externa daily l (before a meal) Fluoxetine 2022-0 Yes [id number] 20mg Take 1 Milagro HCl 20 MG 3-07 capsule Seybold oral 00:00: (20 mg - Capsule 00 total) by Externa mouth l daily Atorvastati 2022-0 Yes [id number] 20mg Take 1 Milagro n Calcium 3-07 3 tablet (20 Seyb old 20 MG oral 00:00: mg total) - Tablet 00 by mouth Externa daily l Albuterol 2022-0 Yes [id number] 2{puff} Q4H Inhale 2 Milagro HFA (PROAIR 3-07 puffs into Se ybold HFA) 108 00:00: the lungs - (90 Base) 00 every 4 Externa MCG/ACT IN hours as l AERS needed for wheezing Trulicity 0 Yes [id number] .75mg Inject Milagro 0.75 3-07 3 0.75 mg Seybold MG/0.5ML 00:00: into the - subcutaneou 00 skin once Ext jian s Solution a week l Pen-injecto r Omeprazole 2022-0 Yes [id number] 20mg Take 1 Milagro 20 MG oral 3-07 capsule Seybol d Delayed 00:00: (20 mg - Release 00 total) by Externa Capsule mouth l daily Loratadine 2022-0 Yes [id number] 10mg Take 1 K elsey 10 MG oral 3-07 tablet (10 Sey bold TABLET 00:00: mg total) - DISPERSIBLE 00 by mouth Exte rna daily l Lisinopril 2022-0 Yes [id number] 2.5mg Take 1 Milagro 2.5 MG oral 3-07 tablet Seybol d Tablet 00:00: (2.5 mg - 00 total) by Externa mouth l daily Atorvastati 2022-0 Yes [id number] 20mg Take 1 Milagro n Calcium 3-07 3 tablet (20 Seyb old 20 MG oral 00:00: mg total) - Tablet 00 by mouth Externa daily l Albuterol 2022-0 Yes [id number] 2{puff} Q4H Inhale 2 Milagro HFA (PROAIR 3-07 puffs into Se ybold HFA) 108 00:00: the lungs - (90 Base) 00 every 4 Externa MCG/ACT IN hours as l AERS needed for wheezing Loratadine 2022-0 2023- No [id number] 10mg Take 1 Milagro 10 MG oral 3-07 11-20 tablet (10 Se ybold TABLET 00:00: 00:00 mg total) - DISPERSIBLE 00 :00 by mouth Exte rna daily l glipiZIDE 5 2022-0 2022- No [id number] 5mg Take 1 Milagro MG oral 10-25 3 tablet (5 Seybol d Tablet 00:00: 00:00 mg total) - 00 :00 by mouth Externa daily l (before a meal) Fluoxetine 2022-0 2022- No Milagro HCl 20 MG 10-19 Seybold oral 00:00: 00:00 - Capsule 00 :00 Externa l Lisinopril 2022-0 2022- No Milagro 2.5 MG oral 10-19 Seybold Tablet 00:00: 00:00 - 00 :00 Externa l glipiZIDE 5 2022-0 2022- No 5mg Take 5 mg Milagro MG oral 08-23 by mouth Seybold Tablet 00:00: 00:00 daily - 00 :00 Externa l Atorvastati 2022-0 3- No 20mg Take 20 mg Milagro n Calcium 08-23 by mouth Seybo ld 20 MG oral 00:00: 00:00 daily - Tablet 00 :00 Externa l lisinopril 2021-0 No 1mg 2.5 mg 7-16 tablet 00:00: 00 metformin 2021-0 No 1mg 1,000 mg 7-16 tablet 00:00: 00 Metformin 2021-0 3- No 1mg Take 1 mg Ke lsey HCl 1000 MG 03-05 by mouth 2 S eybold oral Tablet 00:00: 00:00 times - 00 :00 daily Externa l hydrochloro 2-0 No 1mg thiazide 5-15 12.5 mg 00:00: tablet 00 ProAir HFA 2021-0 No 2mcg/ac 90 5-14 tuation mcg/actuati 00:00: on aerosol 00 inhaler metformin 2-0 No 1mg 500 mg 5-14 tablet 00:00: 00 hydroxyzine 2022-0 No 1mg HCl 50 mg 5-14 tablet 00:00: 00 atorvastati 2022-0 No 1mg n 20 mg 5-14 tablet 00:00: 00 fluoxetine 2022-0 No 1mg 20 mg 5-14 capsule 00:00: 00 Dose 2022-0 No Unknown 5-14 00:00: 00 loratadine 2022-0 No 1mg 10 mg 4-21 tablet 00:00: 00 Dose 2022-0 No Unknown 4-11 00:00: 00 Dose 2022-0 No Unknown 4-11 00:00: 00 atorvastati 2022-0 No 1mg n 10 mg 4-02 tablet 00:00: 00 buspirone 5 2-0 No 1mg mg tablet 4-02 00:00: 00 Dose 2022-0 No Unknown 4-02 00:00: 00 loratadine 2022-0 No 1mg 10 mg 3-24 tablet 00:00: 00 Dose 2022-0 No Unknown 3-21 00:00: 00 buspirone 5 2-0 No 1mg mg tablet 3-19 00:00: 00 loratadine 2022-0 No 1mg 10 mg 3-05 tablet 00:00: 00 buspirone 5 2-0 No 1mg mg tablet 3-04 00:00: 00 hydroxyzine 2022-0 No 1mg HCl 50 mg 3-04 tablet 00:00: 00 Dose 2022-0 No Unknown 3-04 00:00: 00 Dose 2022-0 No Unknown 3-04 00:00: 00 Dose 2022-0 No Unknown 3-04 00:00: 00 Dose 2022-0 No Unknown 3-04 00:00: 00 Dose 2022-0 No Unknown 3-04 00:00: 00 Dose 2022-0 No Unknown 3-04 00:00: 00 Dose 2022-0 No Unknown 3-04 00:00: 00 Dose 2022-0 No Unknown 3-04 00:00: 00 Dose 2022-0 No Unknown 3-04 00:00: 00 Dose 2022-0 No Unknown 3-04 00:00: 00 Dose 2022-0 No Unknown 3-04 00:00: 00 Dose 2022-0 No Unknown 3-04 00:00: 00 Dose 2022-0 No Unknown 3-04 00:00: 00 Dose 2022-0 No Unknown 3-04 00:00: 00 Dose 2022-0 No Unknown 3-04 00:00: 00 Dose 2022-0 No Unknown 3-04 00:00: 00 Dose 2021-0 No Unknown 3-04 00:00: 00 Dose 2021-0 No Unknown 3-04 00:00: 00 Dose 2021-0 No Unknown 3-04 00:00: 00 Dose 2021-0 No Unknown 3-04 00:00: 00 Dose 2021-0 No Unknown 3-04 00:00: 00 Dose 2021-0 No Unknown 3-04 00:00: 00 Dose 2021-0 No Unknown 3-04 00:00: 00 Dose 2021-0 No Unknown 3-04 00:00: 00 Dose 2021-0 No Unknown 2-16 00:00: 00 Dose 2021-0 No Unknown 2-16 00:00: 00 atorvastati 2021-0 No 1mg n 10 mg 2-15 tablet 00:00: 00 Dose 2021-0 No Unknown 2-15 00:00: 00 Dose 2021-0 No Unknown 2-15 00:00: 00 omeprazole 2021-0 No 1mg 20 mg 2-14 capsule,del 00:00: ayed 00 release Dose 2021-0 No Unknown 2-14 00:00: 00 Dose 2021-0 No Unknown 2-14 00:00: 00 Dose 2021-0 No Unknown 2-14 00:00: 00 Dose 2021-0 No Unknown 2-14 00:00: 00 Mirena 20 2021-0 No 1(7 mcg/24 2-14 yrs) 52 hours (7 00:00: mg yrs) 52 mg 00 intrauterin e device Immunizations Ordered Filled Immunization Date Status Comments [facility] e Immunization Name Name Pneumococcal 2023-01-30 Completed Milagro Sanders ld Conjugate 15 00:00:00 - External (Vaxneuvance) Tdap- (Boostrix, 2023-01-30 Completed Milagro leo Adacel) 00:00:00 - External Pneumococcal 2023-01-30 Completed Milagro Sanders ld Conjugate 15 00:00:00 - External (Vaxneuvance) Tdap- (Boostrix, 2023-01-30 Completed Milagro leo Adacel) 00:00:00 - External influenza, 2021-10-04 Completed injectable 00:00:00 Influenza Virus 2021-10-04 Completed Milagro Se ybold Vaccine, No 00:00:00 - External Preserv, age 6 months and up Influenza Virus 2021-10-04 Completed Milagro phillipsold Vaccine, No 00:00:00 - External Preserv, age 6 months and up Influenza Virus 2021-10-04 Completed Milagro phillipsold Vaccine, No 00:00:00 - External Preserv, age 6 months and up Influenza Virus Unknown Completed Milagro muse Vaccine, No - External Preserv, age 6 months and up Pneumococcal Unknown Completed Milagro Shawalano ld Conjugate 15 - External (Vaxneuvance) Tdap- (Boostrix, Unknown Completed Milagro Barton felipa Adacel) - External Vital Signs Vital Name Observation Time Observation Value Comments Source Systolic blood 2023-07-10 15:28:00 128 mm[Hg] Milagro Dobsonold - pressure External Diastolic blood 2023-07-10 15:28:00 72 mm[Hg] Rasta Dobsonold - pressure External Heart rate 2023-07-10 15:28:00 95 /min Milagro mckeonboluigi - External Body temperature 2023-07-10 15:28:00 36.67 Evelyn Courtney mckeon Seybold - External Respiratory rate 2023-07-10 15:28:00 18 /min Courtneysamy Martin - External Body height 2023-07-10 15:28:00 162.6 cm Milagro mckeonboluigi - External Body weight 2023-07-10 15:28:00 192.779 kg Milagro mckeonboluigi - External BMI 2023-07-10 15:28:00 72.95 kg/m2 Milagro Barton felipa - External Oxygen saturation in 2023-07-10 15:28:00 100 /min Milagro Veronica - Arterial blood by External Pulse oximetry Systolic blood 2023-01-30 14:54:00 120 mm[Hg] Milagro Shawybold - pressure External Diastolic blood 2023-01-30 14:54:00 70 mm[Hg] Petersonse roderick Seybold - pressure External Heart rate 2023-01-30 14:54:00 96 /min Milagrochuckie mckeonbold - External Body temperature 2023-01-30 14:54:00 36.83 Evelyn Courtney ey Seybold - External Respiratory rate 2023-01-30 14:54:00 20 /min Courtney mckeon Seybold - External Body height 2023-01-30 14:54:00 162.6 cm Milgaro Barton eybold - External Body weight 2023-01-30 14:54:00 183.162 kg Milagro Barton eybold - External BMI 2023-01-30 14:54:00 69.31 kg/m2 Milagro Barton eybold - External Oxygen saturation in 2023-01-30 14:54:00 97 /min Milagro Martin - Arterial blood by External Pulse oximetry Systolic blood 2022-10-25 15:53:00 132 mm[Hg] Milagro Seybold - pressure External Diastolic blood 2022-10-25 15:53:00 81 mm[Hg] Rasta vaughn Seybold - pressure External Heart rate 2022-10-25 15:53:00 103 /min Milagro Barton eybold - External Body temperature 2022-10-25 15:53:00 37.28 Evelyn Courtney mckeon Seybold - External Respiratory rate 2022-10-25 15:53:00 16 /min Courtney mckeon Seybold - External Body height 2022-10-25 15:53:00 162.6 cm Milagro Barton eybold - External Body weight 2022-10-25 15:53:00 181.892 kg Milagro Barton eybold - External BMI 2022-10-25 15:53:00 68.83 kg/m2 Milagro mckeonbold - External Oxygen saturation in 2022-10-25 15:53:00 97 /min Milagro Shawalanemilee - Arterial blood by External Pulse oximetry BP Systolic 2022-03-05 13:21:00 149 mm[Hg] BP Diastolic 2022-03-05 13:21:00 87 mm[Hg] Weight Measured 2022-03-05 13:21:00 380.80 pounds Height Measured 2022-03-05 13:21:00 64.00 inches Body Temperature 2022-03-05 13:21:00 98.20 degrees Heart Rate 2022-03-05 13:21:00 101.00 /min Respiratory Rate 2022-03-05 13:21:00 BP Systolic 2022-01-01 09:59:00 109 mm[Hg] BP Diastolic 2022-01-01 09:59:00 86 mm[Hg] Weight Measured 2022-01-01 09:59:00 378.80 pounds Height Measured 2022-01-01 09:59:00 64.00 inches Body Temperature 2022-01-01 09:59:00 98.40 degrees Heart Rate 2022-01-01 09:59:00 102.00 /min Respiratory Rate 2022-01-01 09:59:00 BP Systolic 2021-11-20 09:55:00 117 mm[Hg] BP Diastolic 2021-11-20 09:55:00 80 mm[Hg] Weight Measured 2021-11-20 09:55:00 376.00 pounds Height Measured 2021-11-20 09:55:00 64.00 inches Body Temperature 2021-11-20 09:55:00 97.30 degrees Heart Rate 2021-11-20 09:55:00 102.00 /min Respiratory Rate 2021-11-20 09:55:00 Body Temperature 2021-10-04 10:39:00 97.70 degrees Heart Rate 2021-10-04 10:39:00 93.00 /min Respiratory Rate 2021-10-04 10:39:00 16.00 /min BP Systolic 2021-10-04 10:39:00 118 mm[Hg] BP Diastolic 2021-10-04 10:39:00 83 mm[Hg] Weight Measured 2021-10-04 10:39:00 371.00 pounds Height Measured 2021-10-04 10:39:00 64.00 inches Procedures Procedure Date / Time Performed Performing Clinician Sour e 54660 Ekg W/ At Least 12 Leads W/ I 2022-01-01 00:00:00 r Plan of Care Planned Activity Planned Date Details Comments Source Goal Plan of Care Note [code = 91599-5] Goal Plan of Care Note [code = 72065-7] Goal Plan of Care Note [code = 99585-1] Goal Plan of Care Note [code = 62815-3] Goal Plan of Care Note [code = 47497-6] Goal Plan of Care Note [code = 17230-3] Goal Plan of Care Note [code = 67945-6] Goal Plan of Care Note [code = 39938-8] Goal Plan of Care Note [code = 36264-3] Goal Plan of Care Note [code = 46264-8] Goal Plan of Care Note [code = 88650-7] Goal Plan of Care Note [code = 35933-0] Goal Plan of Care Note [code = 07396-9] Goal Plan of Care Note [code = 89050-4] Goal Plan of Care Note [code = 63194-6] Encounters Start End Encounter Admission Attending Care Care Encounter Source Date/Time Date/Time Type Type Clinicians Facility Department ID 2023-10-10 2023-10-10 Outpatient MILAGRO OLSEN [id number] Milagro 10:15:00 10:15:00 COLLEEN Seybol d 2023-08-04 2023-08-04 Outpatient MILAGRO FLANNERY [id number] Milagro 13:00:00 13:00:00 ANGALIE Seybol d 2023-08-04 2023-08-04 Outpatient MILAGRO CÁRDENAS [id number] Milagro 10:00:00 10:00:00 JINU Seybol d 2023-07-10 2023-07-10 Outpatient LAB90 MILAGRO SHELL [id number] Milagro 10:20:00 10:20:00 Seybol d 2023-07-10 2023-07-10 Outpatient MILAGRO BAUER [id number] Milagro 09:30:00 09:30:00 ANDREW Seybol d 2023-07-10 2023-07-10 Outpatient MILAGRO BAUER [id number] Milagro 00:00:00 00:00:00 ANDREW Seybol d 2023-07-10 2023-07-10 Outpatient MILAGRO BAUER [id number] Milagro 00:00:00 00:00:00 ANDREW Seybol d 2023-07-10 2023-07-10 Outpatient MILAGRO BAUER [id number] Milagro 00:00:00 00:00:00 ANDREW Seybol d 2023-07-10 2023-07-10 Outpatient MILAGRO BAUER [id number] Milagro 00:00:00 00:00:00 ANDREW Seybol d 2023-05-05 2023-05-05 Outpatient MILAGRO OLSEN [id number] Milagro 10:00:00 10:00:00 COLLEEN Seybol d 2023-04-29 2023-04-29 Outpatient PREZAS MILAGRO SHELL [id number] Milagro 00:00:00 00:00:00 COLLEEN Seybol d 2023-04-04 2023-04-04 Outpatient PREZAS MILAGRO SHELL [id number] Milagro 00:00:00 00:00:00 COLLEEN Seybol d 2023-03-02 2023-03-02 Outpatient PREZAS, MILAGRO SHELL [id number] Milagro 08:45:00 08:45:00 COLLEEN Seybol d 2023-02-28 2023-02-28 Outpatient BUNAGANMILAGRO [id number] Milagro 00:00:00 00:00:00 ONEIL Dobsono luigi 2023-02-22 2023-02-22 Outpatient AMADA SHELL [id number] Milagro 00:00:00 00:00:00 MD KEVIN Seybol d 2023-02-16 2023-02-16 Outpatient BUNMILAGRO LEWIS [id number] Milagro 15:00:00 15:00:00 ONEIL Seybo luigi 2023-02-03 2023-02-03 Outpatient PREZAS, MILAGRO SEHLL [id number] Milagro 00:00:00 00:00:00 COLLEEN Seybol d 2023-01-30 2023-01-30 Outpatient LAB90 MILAGRO SHELL [id number] Milagro 10:50:00 10:50:00 Seybol d 2023-01-30 2023-01-30 Outpatient PREZASMILAGRO [id number] Milagro 10:00:00 10:00:00 COLLEEN Seybol d 2023-01-27 2023-01-27 Outpatient ALONSO JEFFERSON [id number] Milagro 13:30:00 13:30:00 Seybol d 2023-01-27 2023-01-27 Outpatient AMADA SHELL [id number] Milagro 00:00:00 00:00:00 MD KEVIN Seybol d 2023-01-27 2023-01-27 Outpatient PREZASamy MILAGRO SHELL [id number] Milagro 00:00:00 00:00:00 COLLEEN Seybol d 2023-01-26 2023-01-26 Outpatient PREZAMILAGRO Barton [id number] Milagro 00:00:00 00:00:00 COLLEEN Seybol d 2023-01-22 2023-01-22 Outpatient PREZAMILAGRO Barton [id number] Milagro 00:00:00 00:00:00 COLLEEN Seybol d 2022-12-28 2022-12-28 Outpatient AMADA SHELL [id number] Milagro 00:00:00 00:00:00 MD KEVIN Seybol d 2022-12-28 2022-12-28 Outpatient CAMPOSMILAGRO GIORDANO [id number] [place] 00:00:00 00:00:00 THOMAS Seybol d 2022-12-27 2022-12-27 Outpatient AMADA SHELL [id number] [place] 00:00:00 00:00:00 MD KEVIN Seybol d 2022-12-18 2022-12-18 Outpatient [place] SHELL [id number] [place] 00:00:00 00:00:00 Seybol d 2022-12-13 2022-12-13 Outpatient KRZYSZTOFPETERSONCHUCKIEJUAN SHELL [id number] [place] 00:00:00 00:00:00 MD KEVIN Seybol d 2022-11-22 2022-11-22 Outpatient PREZAMILAGRO Barton [id number] [place] 08:30:00 08:30:00 COLLEEN Seybol d 2022-11-11 2022-11-11 Outpatient PREZASMILAGRO [id number] [place] 00:00:00 00:00:00 COLLEEN Seybol d 2022-11-11 2022-11-11 Outpatient PREZASMILAGRO [id number] [place] 00:00:00 00:00:00 COLLEEN Seybol d 2022-10-27 2022-10-27 Outpatient PREZAMILAGRO Barton [id number] [place] 00:00:00 00:00:00 COLLEEN Seybol d 2022-10-25 2022-10-25 Outpatient LAB90 [place] SHELL [id number] [place] 10:30:00 10:30:00 Seybol d 2022-10-25 2022-10-25 Outpatient MIL[place] OLSEN [id number] [place] 09:45:00 09:45:00 COLLEEN Seybol d 2022-06-04 2022-06-04 Outpatient [facility] SFA [id number] [place] 10:24:32 10:24:32 [id number] Frank 2022-03-05 2022-03-05 Outpatient [id number] 00:00:00 00:00:00 Visit [id number] Results Test Description Test Time Test Comments Results Result Comments Source COMPREHENSIVE METABOLIC PANEL 2022-06-06 05:16:56 Test Item Value Reference Range Interpretation Comme nts GLUCOSE (test code = 2217) 117 MG/DL 70-99 H BUN (test code = 2208) 10 MG/DL 6-20 CREATININE (test code = 0.59 MG/DL 0.60-1.30 L 2213) eGFR (2020 CKD-EPI) (test 126 ML/MIN/1.73 >60 code = 94707) CALC BUN/CREAT (test code = 17 RATIO 6-28 2234) SODIUM (test code = 2231) 143 MEQ/L 133-146 POTASSIUM (test code = 2228) 4.4 MEQ/L 3.5-5.4 CHLORIDE (test code = 2215) 103 MEQ/L 95-107 CARBON DIOXIDE (test code = 23 MEQ/L 19-31 2205) CALCIUM (test code = 2209) 9.6 MG/DL 8.5-10.5 PROTEIN, TOTAL (test code = 7.1 G/DL 6.1-8.3 2228) ALBUMIN (test code = 2201) 4.4 G/DL 3.5-5.2 CALC GLOBULIN (test code = 2.7 G/DL 1.9-3.7 2239) CALC A/G RATIO (test code = 1.6 RATIO 1.0-2.6 4) BILIRUBIN, TOTAL (test code 0.5 MG/DL See_Comment [Automated message] The = 2207) system which ge nerated this result transmit aidan reference range : <=1.2. The reference range was not used to interpr et this result as pedrito l/abnormal. ALKALINE PHOSPHATASE (test 100 U/L 40-112 code = 2204) AST (test code = 2218) 14 U/L 9-40 ALT (test code = 2219) 16 U/L 5-40 LIPID [id number] 05:16:56 Test Item Value Reference Range Interpretation Comments CHOLESTEROL (test 154 MG/DL <200 code = 2210) TRIGLYCERIDES (test 190 MG/DL <150 H code = 2232) HDL CHOLESTEROL (test 33 MG/DL >39 L code = 2220) CALC LDL CHOL (test 93 MG/DL <100 NOTE: C ALCULATED LDL code = 2237) IS BASED ON MELISSA-GARCÍA METHOD WHICHINCLUDES ADJUSTABLE TRIGLYCERIDE:VL DL CHOLESTEROL RAT IO.THIS FACTOR VARIES B Y MEASURED TRIGLY CERIDE AND NON-HDLCHOL ESTEROL CONCENTRATIONS WITH INCREASED CALCU LATED LDL SEENIN HIGH ER TRIGLYCERIDE OR LOWER NON-HDL SPECIME NS. FOR MOREINFORMATION , SEE CLIENT ANNOUNCE MENT AT [email or web address] RATIO LDL/HDL 2.82 RATIO <3.22 (test code = 2238) HEMOGLOBIN [id number] 12:46:24 Test Item Value Reference Range Interpretation Comments HEMOGLOBIN A1c (test 7.4 % 4.2-5.6 H AMERIC AN DIABETES code = 98455) ASSOCIATION IDELINES FOR HGB A1C: PREDIABETES/INC REASED RISK . . . . . . . 5.7 -6.4% DIAGNOSIS OF DI ABETES . . . . . . . . . >=6 .5% WITH CONFIRMATION OR APPROPRIATE SYMPTOMS NOTE: ASSAY MAY BE AFFECTED BY HEMOGLOBINOPATH IES (SICKLE CELL ANEMIA, S- C DISEASE, OTHERS) OR KACI FICIALLY LOWERED BY DECR EASED RED CELL SURVIVAL ( HEMOLYTIC ANEMIAS, BLOOD LOSS, ETC.). CONSIDER ALTERN ATE TESTING OR LABORATORY C ONSULTATION. UNLESS OTHERWIS E INDICATED, ALL TESTING PER FORMED ATCLINICAL PATH [facility]LY LABORATORIES, I [place]. [address] [place], [place] [address] LABORATORY DIRE CTOR: ZEESHAN SRIVASTAVA M.D. CLIA NUMBER [id number] [place]. [id number] LIPID [id number] 23:41:38 Test Item Value Reference Range Interpretation Comments CHOLESTEROL (test 143 MG/DL <200 code = 2210) TRIGLYCERIDES (test 154 MG/DL <150 H code = 2232) HDL CHOLESTEROL (test 33 MG/DL >39 L code = 2220) CALC LDL CHOL (test 84 MG/DL <100 NOTE: C ALCULATED LDL code = 2237) IS BASED ON MELISSA-GARCÍA METHOD WHICHINCLUDES ADJUSTABLE TRIGLYCERIDE:VL DL CHOLESTEROL RAT IO.THIS FACTOR VARIES B Y MEASURED TRIGLY CERIDE AND NON-HDLCHOL ESTEROL CONCENTRATIONS WITH INCREASED CALCU LATED LDL SEENIN HIGH ER TRIGLYCERIDE OR LOWER NON-HDL SPECIME NS. FOR MOREINFORMATION , SEE CLIENT ANNOUNCE MENT AT [email or web address] RATIO LDL/HDL 2.55 RATIO <3.22 (test code = 2238) HEMOGLOBIN [id number] 04:36:47 Test Item Value Reference Range Interpretation Comments HEMOGLOBIN A1c (test 9.0 % 4.2-5.6 H AMERIC AN DIABETES code = 77765) ASSOCIATION IDELINES FOR HGB A1C: PREDIABETES/INC REASED RISK . . . . . . . 5.7 -6.4% DIAGNOSIS OF DI ABETES . . . . . . . . . >=6 .5% WITH CONFIRMATION OR APPROPRIATE SYMPTOMS NOTE: ASSAY MAY BE AFFECTED BY HEMOGLOBINOPATH IES (SICKLE CELL ANEMIA, S- C DISEASE, OTHERS) OR KACI FICIALLY LOWERED BY DECR EASED RED CELL SURVIVAL ( HEMOLYTIC ANEMIAS, BLOOD LOSS, ETC.). CONSIDER ALTERN ATE TESTING OR LABORATORY C ONSULTATION. UNLESS OTHERWIS E INDICATED, ALL TESTING PER FORMED ATCLINICAL PATH [facility]LOGY LABORATORIES, I [place]. [address] [place], [place] [address] LABORATORY DIRE CTOR: ZEESHAN SRIVASTAVA M.D. CLIA NUMBER [id number] [place]. [id number] ALBUMIN, URINE, [id number] 02:46:02 Test Item Value Reference Range Interpretation Comments ALBUMIN, URINE, 2.1 MG/DL NOT ESTAB UNLESS OTHE RWISE RANDOM (test code = INDICATE D, ALL TESTING [address]9827) PER[facility]MED [facility] [address] [facility] [place] [address] YASSINE MEJIA DIRECTOR: Michelle ROBERTSIA NUMBER [id number] CAP ACCREDITATION N O. [id number] MICROALBUMIN, [id number] 00:00:00 Test Item Value Reference Range Interpretation Comments ALBUMIN, URINE, RANDOM (test code = 2.1 MG/DL 93235) LIPID [id number] 01:13:50 Test Item Value Reference Range Interpretation Comments CHOLESTEROL (test 161 MG/DL <200 code = 2210) TRIGLYCERIDES (test 252 MG/DL <150 H code = 2232) HDL CHOLESTEROL (test 34 MG/DL >39 L code = 2220) CALC LDL CHOL (test 94 MG/DL <100 NOTE: C ALCULATED LDL code = 2237) IS BASED ON MELISSA-GARCÍA METHOD WHICHINCLUDES ADJUSTABLE TRIGLYCERIDE:VL DL CHOLESTEROL RAT IO.THIS FACTOR VARIES B Y MEASURED TRIGLY CERIDE AND NON-HDLCHOL ESTEROL CONCENTRATIONS WITH INCREASED CALCU LATED LDL SEENIN HIGH ER TRIGLYCERIDE OR LOWER NON-HDL SPECIME NS. FOR MOREINFORMATION , SEE CLIENT ANNOUNCE MENT AT [email or web address] RATIO LDL/HDL 2.76 RATIO <3.22 (test code = 2238) COMPREHENSIVE METABOLIC [id number] 01:13:50 Test Item Value Reference Range Interpretation Comments GLUCOSE (test code = 239 MG/DL 70-99 H 2216) BUN (test code = 10 MG/DL -20 2207) CREATININE (test 0.61 MG/DL 0.60-1.30 code = 2214) eGFR (2020 CKD-EPI) 125 >60 (test code = 17598) ML/MIN/1.73 CALC BUN/CREAT (test 16 RATIO 6-28 code = 2235) SODIUM (test code = 140 MEQ/L 287-259 6946) POTASSIUM (test code 4.2 MEQ/L 3.5-5.4 = 2227) CHLORIDE (test code 102 MEQ/L 95-107 = 2214) CARBON DIOXIDE (test 25 MEQ/L 19-31 code = 2206) CALCIUM (test code = 9.7 MG/DL 8.5-10.5 2208) PROTEIN, TOTAL (test 7.1 G/DL 6.1-8.3 code = 222) ALBUMIN (test code = 4.4 G/DL 3.5-5.2 2200) CALC GLOBULIN (test 2.7 G/DL 1.9-3.7 code = 2240) CALC A/G RATIO (test 1.6 RATIO 1.0-2.6 code = 2234) BILIRUBIN, TOTAL 0.4 MG/DL See_Comment [Automated message] (test code = 220) The syste m which generated this result transmit aidan reference range : <=1.2. The refe rence range was not u sed to interpret th is result as normal/abnormal . ALKALINE PHOSPHATASE 93 U/L 40-112 (test code = 220) AST (test code = 18 U/L 9-40 2217) ALT (test code = 20 U/L 5-40 2218) LIPID [id number] 00:00:00 Test Item Value Reference Range Interpretation Comments CHOLESTEROL (test code = 2210) 161 MG/DL TRIGLYCERIDES (test code = 2232) 252 MG/DL HDL CHOLESTEROL (test code = 2220) 34 MG/DL CALC LDL CHOL (test code = 2237) 94 MG/DL RISK RATIO LDL/HDL (test code = 2.76 RATIO 2238) COMPREHENSIVE METABOLIC [id number] 00:00:00 Test Item Value Reference Range Interpretation Comments GLUCOSE (test code = 2217) 239 MG/DL BUN (test code = 2208) 10 MG/DL CREATININE (test code = 2214) 0.61 MG/DL eGFR (2020 CKD-EPI) (test 125 ML/MIN/1.73 code = 99270) CALC BUN/CREAT (test code = 16 RATIO 2235) SODIUM (test code = 2231) 140 MEQ/L POTASSIUM (test code = 2228) 4.2 MEQ/L CHLORIDE (test code = 2215) 102 MEQ/L CARBON DIOXIDE (test code = 25 MEQ/L 2205) CALCIUM (test code = 220) 9.7 MG/DL PROTEIN, TOTAL (test code = 7.1 G/DL 2228) ALBUMIN (test code = 220) 4.4 G/DL CALC GLOBULIN (test code = 2.7 G/DL 2239) CALC A/G RATIO (test code = 1.6 RATIO 2234) BILIRUBIN, TOTAL (test code = 0.4 MG/DL 7) ALKALINE PHOSPHATASE (test 93 U/L code = 2204) AST (test code = 2218) 18 U/L ALT (test code = 2219) 20 U/L HEMOGLOBIN [id number] 04:34:55 Test Item Value Reference Range Interpretation Comments HEMOGLOBIN A1c (test 9.3 % 4.2-5.6 H AMERI CAN DIABETES code = 43059) ASSOCIATION IDELINES FOR HGB A1C: PREDIABETES/INC REASED RISK . . . . . . . 5.7 -6.4% DIAGNOSIS OF DI ABETES . . . . . . . . . >=6 .5% WITH CONFIRMATION OR APPROPRIATE SYMPTOMS NOTE: ASSAY MAY BE AFFECTED BY HEMOGLOBINOPATH IES (SICKLE CELL ANEMIA, S- C DISEASE, OTHERS) OR KACI FICIALLY LOWERED BY DECR EASED RED CELL SURVIVAL ( HEMOLYTIC ANEMIAS, BLOOD LOSS, ETC.). CONSIDER ALTERN ATE TESTING OR LABORATORY C ONSULTATION. HEMOGLOBIN [id number] 00:00:00 Test Item Value Reference Range Interpretation Comments HEMOGLOBIN A1c (test code = 85837) 9.3 % HEMOGLOBIN [id number] 00:00:00 Test Item Value Reference Range Interpretation Comments HEMOGLOBIN A1c (test code = 10814) 9.3 % HEMOGLOBIN [id number] 05:22:37 Test Item Value Reference Range Interpretation Comments HEMOGLOBIN A1c (test 8.7 % 4.2-5.6 H AMERIC AN DIABETES code = 76214) ASSOCIATION IDELINES FOR HGB A1C: PREDIABETES/INC REASED RISK . . . . . . . 5.7 -6.4% DIAGNOSIS OF DI ABETES . . . . . . . . . >=6 .5% WITH CONFIRMATION OR APPROPRIATE SYMPTOMS NOTE: ASSAY MAY BE AFFECTED BY HEMOGLOBINOPATH IES (SICKLE CELL ANEMIA, S- C DISEASE, OTHERS) OR KACI FICIALLY LOWERED BY DEC REASED RED CELL SURVIVAL ( HEMOLYTIC ANEMIAS, BLOOD LOSS, ETC.). CONSIDER ALTERN ATE TESTING OR LABORATORY C ONSULTATION. LIPID [id number] 04:02:34 Test Item Value Reference Range Interpretation [...] MOREINFORMATION , SEE CLIENT ANNOUNCE MENT AT [email or web address] [email or web address] RATIO LDL/HDL 3.66 RATIO <3.22 H (test code = 2238) COMPREHENSIVE METABOLIC [id number] 04:02:34 Test Item Value Reference Range Interpretation Comments GLUCOSE (test code = 147 MG/DL 70-99 H 2216) BUN (test code = 9 MG/DL 6-20 2207) CREATININE (test 0.51 MG/DL 0.60-1.30 L code = 2214) eGFR (2020 CKD-EPI) 130 >60 (test code = 13938) ML/MIN/1.73 CALC BUN/CREAT (test 18 RATIO 6-28 code = 2235) SODIUM (test code = 140 MEQ/L 894-803 1829) POTASSIUM (test code 4.5 MEQ/L 3.5-5.4 = 222) CHLORIDE (test code 100 MEQ/L 95-107 = 2215) CARBON DIOXIDE (test 25 MEQ/L 19-31 code = 2206) CALCIUM (test code = 9.4 MG/DL 8.5-10.5 2208) PROTEIN, TOTAL (test 7.4 G/DL 6.1-8.3 code = 2229) ALBUMIN (test code = 4.3 G/DL 3.5-5.2 2200) CALC GLOBULIN (test 3.1 G/DL 1.9-3.7 code [...] AST (test code = 22 U/L 9-40 2218) ALT (test code = 25 U/L 5-40 2219) HIV 1/2 4TH GEN, RFLX [id number] 03:54:00 Test Item Value Reference Range Interpretation Comments HIV 1/2 4TH GEN, RFLX CONF (test NON-REACTIVE NON-REACTIVE code = 3514) HEPATITIS PANEL, [id number] 03:54:00 Test Item Value Reference Range Interpretation Comments HEPATITIS A IgM (test NON-REACTIVE NON-REACTIVE code = 22822) HEPATITIS B CORE IgM NON-REACTIVE NON-REACTIVE (test code = 4644) HEPATITIS B SURF AG NON-REACTIVE NON-REACTIVE (test code = 2739) HEPATITIS C ANTIBODY NON-REACTIVE NON-REACTIVE (test code = 4675) INTERPRETATION (NOTE) Hepatitis A HEPATITIS A: (test serology shows no code = 2552) evidence of acu te hepatitis A. INTERPRETATION (NOTE) Hepatitis B HEPATITIS B: (test serology shows no code = 96478) evidence of ac cahto hepatitis B and no indication of exposure to hepatitis B vir us in the previous si xto eight months. INTERPRETATION (NOTE) Hepatitis C HEPATITIS C: (test serology shows no code = 01262) evidence of ex posure to hepatitisC v irus at this time. I t can take up to 12 m onths after exposure tothe hepatitis C vir us for antibodies to become detectab le in the blood in ce rtain patients. UNLES S OTHERWISE INDIC ATED, ALL TESTING PERFORMED [facility], [place]. [address] [place] [id number] [place] [address] DIRECTOR: Michelle ROBERTS NUMBER [id number] [place] [id number] CBC W/AUTO DIFF WITH [id number] 03:49:45 Test Item Value Reference Range Interpretation [...] = 1036) NUCLEATED RBCS (test 0.0 /100 WBC'S See_Comment [Aut omated code = 1065) message] The sy stem which generated this [...] RBCS 0.00 K/UL 0.00-0.11 (test code = 12789) CBC W/AUTO [id number] 00:00:00 Test Item Value Reference Range Interpretation Comments WBC (test code = 1001) 10.4 K/UL RBC (test code = 1002) 5.34 M/UL HEMOGLOBIN (test code = 1003) 12.8 G/DL HEMATOCRIT (test code = 1004) 38.7 % MCV (test code = 1005) 72.5 fL MCH (test code = 1006) 24.0 PG MCHC (test code = 1007) 33.1 G/DL RDW (test code = 1038) 15.7 % NEUTROPHILS (test code = 1008) 60.3 % LYMPHOCYTES (test code = 1010) 30.9 % MONOCYTES (test code = 1011) 4.5 % EOSINOPHILS (test code = 1012) 2.9 % BASOPHILS (test code = 1013) 0.5 % IMMATURE GRANULOCYTES (test 0.9 % code = 1036) NUCLEATED RBCS (test code = 0.0 /100WBC'S 1065) PLATELET COUNT (test code = 357 K/UL 1015) ABSOLUTE NEUTROPHILS (test code 6.30 K/UL = 1066) ABSOLUTE LYMPHOCYTES (test code 3.22 K/UL = 1067) ABSOLUTE MONOCYTES (test code = 0.47 K/UL 1068) ABSOLUTE EOSINOPHILS (test code 0.30 K/UL = 1040) ABSOLUTE BASOPHILS (test code = 0.05 K/UL 1069) ABS IMMATURE GRANULOCYTES (test 0.09 K/UL code = 1020) ABS NUCLEATED RBCS (test code = 0.00 K/UL 37389) CBC W/AUTO [id number] 00:00:00 Test Item Value Reference Range Interpretation Comments WBC (test code = 1001) 10.4 K/UL RBC (test code = 1002) 5.34 M/UL HEMOGLOBIN (test code = 1003) 12.8 G/DL HEMATOCRIT (test code = 1004) 38.7 % MCV (test code = 1005) 72.5 fL MCH (test code = 1006) 24.0 PG MCHC (test code = 1007) 33.1 G/DL RDW (test code = 1038) 15.7 % NEUTROPHILS (test code = 1008) 60.3 % LYMPHOCYTES (test code = 1010) 30.9 % MONOCYTES (test code = 1011) 4.5 % EOSINOPHILS (test code = 1012) 2.9 % BASOPHILS (test code = 1013) 0.5 % IMMATURE GRANULOCYTES (test 0.9 % code = 1036) NUCLEATED RBCS (test code = 0.0 /100WBC'S 1065) PLATELET COUNT (test code = 357 K/UL 1015) ABSOLUTE NEUTROPHILS (test code 6.30 K/UL = 1066) ABSOLUTE LYMPHOCYTES (test code 3.22 K/UL = 1067) ABSOLUTE MONOCYTES (test code = 0.47 K/UL 1068) ABSOLUTE EOSINOPHILS (test code 0.30 K/UL = 1040) ABSOLUTE BASOPHILS (test code = 0.05 K/UL 1069) ABS IMMATURE GRANULOCYTES (test 0.09 K/UL code = 1020) ABS NUCLEATED RBCS (test code = 0.00 K/UL 70723) COMPREHENSIVE METABOLIC [id number] 00:00:00 Test Item Value Reference Range Interpretation Comments GLUCOSE (test code = 2217) 147 MG/DL BUN (test code = 2208) 9 MG/DL CREATININE (test code = 2214) 0.51 MG/DL eGFR (2020 CKD-EPI) (test 130 ML/MIN/1.73 code = 54117) CALC BUN/CREAT (test code = 18 RATIO 2235) SODIUM (test code = 2231) 140 MEQ/L POTASSIUM (test code = 2228) 4.5 MEQ/L CHLORIDE (test code = 2215) 100 MEQ/L CARBON DIOXIDE (test code = 25 MEQ/L 2205) CALCIUM (test code = 2209) 9.4 MG/DL PROTEIN, TOTAL (test code = 7.4 G/DL 2228) ALBUMIN (test code = 2201) 4.3 G/DL CALC GLOBULIN (test code = 3.1 G/DL 2239) CALC A/G RATIO (test code = 1.4 RATIO 2233) BILIRUBIN, TOTAL (test code = 0.4 MG/DL 2206) ALKALINE PHOSPHATASE (test 93 U/L code = 2204) AST (test code = 2218) 22 U/L ALT (test code = 2219) 25 U/L LIPID [id number] 00:00:00 Test Item Value Reference Range Interpretation Comments CHOLESTEROL (test code = 2210) 194 MG/DL TRIGLYCERIDES (test code = 2232) 185 MG/DL HDL CHOLESTEROL (test code = 2220) 35 MG/DL CALC LDL CHOL (test code = 2237) 128 MG/DL RISK RATIO LDL/HDL (test code = 3.66 RATIO 2238) HEMOGLOBIN A1c [ADDED]2021-10-05 00:00:00 Test Item Value Reference Range Interpretation Comments HEMOGLOBIN A1c (test code = 42621) 8.7 % HEMOGLOBIN A1c [ADDED]2021-10-05 00:00:00 Test Item Value Reference Range Interpretation Comments HEMOGLOBIN A1c (test code = 73685) 8.7 % HIV 1/2 4TH GEN, RFLX CONF [ADDED]2021-10-05 00:00:00 Test Item Value Reference Range Interpretation Comments HIV / 4TH GEN, RFLX CONF (test NON-REACTIVE code = 3514) HEPATITIS PANEL, ACUTE [ADDED]2021-10-05 00:00:00 Test Item Value Reference Range Interpretation Comments HEPATITIS A IgM (test code = NON-REACTIVE 21822) HEPATITIS B CORE IgM (test code NON-REACTIVE = 4644) HEPATITIS B SURF AG (test code = NON-REACTIVE 0799) HEPATITIS C ANTIBODY (test code NON-REACTIVE = 4689) INTERPRETATION HEPATITIS A: (NOTE) (test code = 2552) INTERPRETATION HEPATITIS B: (NOTE) (test code = 34638) INTERPRETATION HEPATITIS C: (NOTE) (test code = 53579)
--- NOTE | 2023-07-15 11:56 | RAD REPORT ---
EXAM DESCRIPTION: CT - Head Brain Wo Cont - 07/15/2023 11:50 am CLINICAL HISTORY: HEADACHE Headache, drowsiness, hypertension COMPARISON: No comparisons TECHNIQUE: All CT scans are performed using dose optimization technique as appropriate and may inclu de automated exposure control or mA/KV adjustment according to patient size. FINDINGS: No intracranial hemorrhage, hydrocephalus or extra-axial fluid collection.No areas of brai n edema or evidence of midline shift. The paranasal sinuses and mastoids are clear. The calvarium is intact. IMPRESSION: No acute intracranial abnormality.
[2023-07-15 12:22] LABS: Absolute Lymphocytes (CBC) 2.6 K/uL (0.7-4.9); Hematocrit 34.6 % (36.0-45.0); Lymphocytes % 23.8 % (15.3-44.8); MCV 71.1 fL (80-100); MPV 6.6 fL (7.6-11.3); Platelets 340 thou/uL (152-406); RBC Red Blood Cell Count 4.87 M/uL (3.86-4.86)
[2023-07-15] MEDS ORDERED: ONDANSETRON 4 MG/2 ML VIAL ONE (12:32)
[2023-07-15] MEDS ORDERED: KETOROLAC 30 MG/ML INJ ONE (12:32)
[2023-07-15 12:39] LABS: Albumin 3.6 g/dL (3.4-5.0); Bilirubin Total 0.6 mg/dL (0.2-1.0); Potassium 3.6 mEq/L (3.5-5.1); Protein, Total 7.8 g/dL (6.4-8.2)
--- NOTE | 2023-07-15 12:48 | ER ---
Nurse's Notes [facility] Name: Gregorio Szymanski Age: 28 yrs Sex: Female : 1995 Arrival Date: 07/15/2023 Time: 11:00 Bed 13 Private MD: Diagnosis: Headache Presentation: 07/15 11:23 Chief complaint: Patient states: SU since awaking today. + nausea off/on. Coronavirus ll1 screen: Client denies travel out of the [place] in the last 14 days. At this time, the client does not indicate any symptoms associated with coronavirus-19. Ebola Screen: Patient denies travel to an Ebola-affected area in the 21 days before illness onset. Initial Sepsis Screen: Does the patient meet any 2 criteria? No. Patient's initial sepsis screen is negative. Does the patient have a suspected source of infection? No. Patient's initial sepsis screen is negative. Risk Assessment: Do you want to hurt yourself or someone else? Patient reports no desire to harm self or others. Onset of symptoms was July 15, 2023. 11:23 Method Of Arrival: Ambulatory ll1 11:23 Acuity: DENZEL 3 ll1 Triage Assessment: 11:23 General: Appears uncomfortable, Behavior is calm, cooperative, appropriate for age. ll1 Pain: Complains of pain in head Pain currently is 3 out of 10 on a pain scale. Pain began 1 day ago. Neuro: Reports headache. GI: Reports nausea. 12:59 Headache History: The patient has had previous headaches and this one is less severe cm10 than previous episodes. Pain: Also complains of nausea. Historical: - Allergies: 11:22 PENICILLINS; ll1 - PMHx: 11:22 Asthma; diabetes mellitus; Gastroesophageal reflux disease; Sleep apnea; ll1 Hypercholesterolemia; Hypertensive disorder; - Immunization history:: Adult Immunizations up to date. - Social history:: Smoking status: Patient denies any tobacco usage or history of. Screenin:31 [facility] ED Fall Risk Assessment (Adult) History of falling in the last 3 months, cm10 including since admission No falls in past 3 months (0 pts) Confusion or Disorientation No (0 pts) Intoxicated or Sedated No (0 pts) Impaired Gait No (0 pts) Mobility Assist Device Used No (0 pt) Altered Elimination No (0 pt) Score/Fall Risk Level 0 - 2 = Low Risk Oriented to surroundings, Maintained a safe environment, Hourly rounding (assess needs \T\ fall precautionary measures) done. Abuse screen: Denies threats or abuse. Denies injuries from another. Nutritional screening: No deficits noted. Tuberculosis screening: No symptoms or risk factors identified. Assessment: 12:07 Reassessment: No changes from previously documented assessment. Patient and/or family ll1 updated on plan of care and expected duration. Pain level reassessed. Patient is alert, oriented x 3, equal unlabored respirations, skin warm/dry/pink. 12:30 General: Appears in no apparent distress. comfortable, Behavior is calm, cooperative. cm10 Pain: Complains of pain in head Pain does not radiate. Pain currently is 3 out of 10 on a pain scale. Quality of pain is described as pressure, Pain began suddenly. Neuro: No deficits noted. Su Agitation-Sedation Scale (RASS): 0 - Alert and Calm Level of Consciousness is awake, alert, obeys commands, Oriented to person, place, time, situation, Reports headache. Cardiovascular: No deficits noted. Patient's skin is warm and dry. Respiratory: No deficits noted. Airway is patent Respiratory effort is even, unlabored, Respiratory pattern is regular, symmetrical. GI: No deficits noted. Abdomen is obese, Reports nausea. : No deficits noted. No signs and/or symptoms were reported regarding the genitourinary system. EENT: No deficits noted. No signs and/or symptoms were reported regarding the EENT system. Derm: No deficits noted. No signs and/or symptoms reported regarding the dermatologic system. Skin is intact, Skin is pink, warm \T\ dry. Musculoskeletal: No deficits noted. Range of motion: intact in all extremities. 12:59 Reassessment: Patient is alert, oriented x 3, equal unlabored respirations, skin cm10 warm/dry/pink. Patient denies pain at this time. Patient states feeling better. Vital Signs: 11:23 BP 177 / 100; Pulse 101; Resp 18; Temp 97.8; Pulse Ox 100% ; Weight 192.78 kg; Height 5 ll1 ft. 4 in. ; Pain 3/10; 12:32 BP 141 / 85; Pulse 84; Resp 18; Pulse Ox 94% on R/A; cm10 13:00 BP 134 / 73; Pulse 83; Resp 18; Pulse Ox 97% on R/A; Pain 0/10; cm10 11:23 Body Mass Index 72.95 (192.78 kg, 162.56 cm) ll1 11:23 Pain Scale: Adult ll1 13:00 Pain Scale: Adult cm10 ED Course: 11:05 Patient arrived in ED. mg5 11:22 Arm band placed on Patient placed in an exam room, on a stretcher. ll1 11:24 Triage completed. ll1 11:25 Kathy Baker MD is Attending Physician. sp3 11:51 Head Brain Wo Cont CT In Process Unspecified. EDMS 12:16 CBC with Diff Sent. bc6 12:16 CMP Sent. bc6 12:16 Inserted saline lock: 20 gauge in left antecubital area, using aseptic technique. Blood bc6 collected. 12:31 Patient has correct armband on for positive identification. Bed in low position. Call cm10 light in reach. Side rails up X2. Provided Education on: ER process and procedures. . Pulse ox on. NIBP on. 12:59 No provider procedures requiring assistance completed. IV discontinued, intact, cm10 bleeding controlled, No redness/swelling at site. Pressure dressing applied. Administered Medications: 12:29 Drug: TORadol - Ketorolac IVP 15 mg IVP once Route: IVP; Site: left forearm; cm10 13:00 Follow up: Response: No adverse reaction cm10 12:29 Drug: Ondansetron IVP 4 mg IVP once; over 2 minutes Route: IVP; Site: left forearm; cm10 13:00 Follow up: Response: No adverse reaction cm10 Medication: 12:31 VIS not applicable for this client. cm10 Outcome: 12:47 Discharge ordered by . sp3 12:59 Discharged to home ambulatory, with significant other, cm10 12:59 Condition: good 12:59 Discharge instructions given to patient, Instructed on discharge instructions, follow up and referral plans. medication usage, Demonstrated understanding of instructions, follow-up care, medications, Prescriptions given X 1, 13:00 Patient left the ED. cm10 Signatures: Dispatcher [employer] EDMS Nathaly Barone RN RN ll1 Kathy Baker MD MD sp3 Mariaelena Kelley bc6 Eloina Beltran RN RN cm10 Alejandra Molina mg5
--- NOTE | 2023-07-15 12:48 | EDPHYS ---
Physician Documentation [facility] Name: Gregorio Szymanski Age: 28 yrs Sex: Female : 1995 Arrival Date: 07/15/2023 Time: 11:00 Bed 13 Private MD: ED Physician Kathy Baker HPI: 07/15 12:43 This 28 yrs old Female presents to ER via Ambulatory with complaints of Headache, sp3 Nausea. 12:43 28-year-old female with a history of asthma, diabetes, hyperlipidemia, obesity and sp3 occasional headache now presents to the ED with chief complaint headache since early this morning. Patient states it is coming and going but is much improved now. Patient's grandmother had a cerebral aneurysm and she is concerned that she does not have the same thing. No history of thunderclap headache and headache is mainly self resolved on its own. She denies fever, neck pain, vision changes, sensory changes, chest pain, shortness of breath, vomiting, diarrhea, nausea, abdominal pain, syncope, near syncope, seizure, other deficit neurologically, or any other signs or symptoms on ROS at this time.. Historical: - Allergies: 11:22 PENICILLINS; ll1 - PMHx: 11:22 Asthma; diabetes mellitus; Gastroesophageal reflux disease; Sleep apnea; ll1 Hypercholesterolemia; Hypertensive disorder; - Immunization history:: Adult Immunizations up to date. - Social history:: Smoking status: Patient denies any tobacco usage or history of. ROS: 12:44 Constitutional: Negative for fever, chills, and weight loss, Eyes: Negative for injury, sp3 pain, redness, and discharge, ENT: Negative for injury, pain, and discharge, Neck: Negative for injury, pain, and swelling, Cardiovascular: Negative for chest pain, palpitations, and edema, Respiratory: Negative for shortness of breath, cough, wheezing, and pleuritic chest pain, Abdomen/GI: Negative for abdominal pain, nausea, vomiting, diarrhea, and constipation, Back: Negative for injury and pain, MS/Extremity: Negative for injury and deformity, Skin: Negative for injury, rash, and discoloration, Psych: Negative for depression, anxiety, suicide ideation, homicidal ideation, and hallucinations, Allergy/Immunology: Negative for hives, rash, and allergies, Endocrine: Negative for neck swelling, polydipsia, polyuria, polyphagia, and marked weight changes, Hematologic/Lymphatic: Negative for swollen nodes, abnormal bleeding, and unusual bruising, 12:44 All other systems are negative, Exam: 12:44 Constitutional: This is a well developed, well nourished patient who is awake, alert, sp3 and in no acute distress. Head/Face: Normocephalic, atraumatic. Eyes: Pupils equal round and reactive to light, extra-ocular motions intact. Lids and lashes normal. Conjunctiva and sclera are non-icteric and not injected. Cornea within normal limits. Periorbital areas with no swelling, redness, or edema. ENT: Nares patent. No nasal discharge, no septal abnormalities noted. External auditory canals are clear. Oropharynx with no redness, swelling, or masses, exudates, or evidence of obstruction, uvula midline. Mucous membranes moist. Neck: Trachea midline, no thyromegaly or masses palpated, and no cervical lymphadenopathy. Supple, full range of motion without nuchal rigidity, or vertebral point tenderness. No Meningismus. Chest/axilla: Normal chest wall appearance and motion. Nontender with no deformity. No lesions are appreciated. Cardiovascular: Regular rate and rhythm with a normal S1 and S2. No gallops, murmurs, or rubs. Normal PMI, no JVD. No pulse deficits. Respiratory: Lungs have equal breath sounds bilaterally, clear to auscultation and percussion. No rales, rhonchi or wheezes noted. No increased work of breathing, no retractions or nasal flaring. Abdomen/GI: Soft, non-tender, with normal bowel sounds. No distension or tympany. No guarding or rebound. No evidence of tenderness throughout. Back: No spinal tenderness. No costovertebral tenderness. Full range of motion. Skin: Warm, dry with normal turgor. Normal color with no rashes, no lesions, and no evidence of cellulitis. MS/ Extremity: Pulses equal, no cyanosis. Neurovascular intact. Full, normal range of motion. Neuro: Awake and alert, GCS 15, oriented to person, place, time, and situation. Cranial nerves II-XII grossly intact. Motor strength 5/5 in all extremities. Sensory grossly intact. Cerebellar exam normal. Normal gait. Psych: Awake, alert, with orientation to person, place and time. Behavior, mood, and affect are within normal limits. Vital Signs: 11:23 BP 177 / 100; Pulse 101; Resp 18; Temp 97.8; Pulse Ox 100% ; Weight 192.78 kg; Height 5 ll1 ft. 4 in. ; Pain 3/10; 12:32 BP 141 / 85; Pulse 84; Resp 18; Pulse Ox 94% on R/A; cm10 13:00 BP 134 / 73; Pulse 83; Resp 18; Pulse Ox 97% on R/A; Pain 0/10; cm10 11:23 Body Mass Index 72.95 (192.78 kg, 162.56 cm) ll1 11:23 Pain Scale: Adult ll1 13:00 Pain Scale: Adult cm10 MDM: 11:27 Patient medically screened. sp3 12:46 Data reviewed: vital signs, nurses notes, lab test result(s), radiologic studies. ED sp3 course: 28-year-old female with extensive past medical history and now headache that is fairly resolved. History is not consistent with subarachnoid hemorrhage or aneurysm. CT scan of the head is normal and patient's headache is fairly resolved. Vital signs are normal. At this time she feels better with the pain medications given and her nausea that was previously present continues to be absent. Nausea had self resolved prior to arrival but Zofran was given anyways just as a preventative measure. At this time we will safely discharge patient home. I have given extensive instructions to return for any further headache symptoms. Lumbar puncture was not indicated at this time from a bleeding standpoint.. 07/15 11:27 Order name: CBC with Diff; Complete Time: 12:25 sp3 07/15 11:27 Order name: CMP; Complete Time: 12:42 sp3 07/15 11:27 Order name: Head Brain Wo Cont CT; Complete Time: 12:25 sp3 07/15 11:27 Order name: IV Saline Lock; Complete Time: 12:16 sp3 07/15 11:27 Order name: Labs collected and sent; Complete Time: 12:16 sp3 Administered Medications: 12:29 Drug: TORadol - Ketorolac IVP 15 mg IVP once Route: IVP; Site: left forearm; cm10 13:00 Follow up: Response: No adverse reaction cm10 12:29 Drug: Ondansetron IVP 4 mg IVP once; over 2 minutes Route: IVP; Site: left forearm; cm10 13:00 Follow up: Response: No adverse reaction cm10 Disposition Summary: 07/15/23 12:47 Discharge Ordered Notes: Location: Home sp3 Condition: Stable sp3 Diagnosis - Headache sp3 Followup: sp3 - With: Private Physician - When: Upon discharge from the Emergency Department - Reason: Continuance of care Discharge Instructions: - Discharge Summary Sheet sp3 - General Headache Without Cause sp3 Forms: - Medication Reconciliation Form sp3 - Thank You Letter sp3 - Antibiotic Education sp3 - Prescription Opioid Use sp3 - Patient Portal Instructions sp3 - Leadership Thank You Letter sp3 Prescriptions: - Diclofenac Sodium 75 mg Oral Tablet Sustained Release - take 1 tablet ORAL route 2 times per day; 30 tablet; Refills: 0, Product sp3 Selection Permitted Signatures: Dispatcher [employer] Nathaly Mcdaniel, RN RN ll1 Kathy Baker MD MD sp3 Eloina Beltran RN RN cm10
[2023-07-15 13:17] VITALS: TEMP 97.8
[2023-07-15 13:20] VITALS: BP 134/73; O2SAT 97
== END 2023-07-15 13:00 | disposition home or self-care (01) ==
LOC: ER 11:00
DX: R51.9 Headache, unspecified (principal); E11.9 Type 2 diabetes mellitus without complications; I10 Essential (primary) hypertension; Z88.0 Allergy status to penicillin
CPT/HCPCS: 85025; 36415; 80053; 70450; 96375; 96374; 99284; J2405

== ENCOUNTER 2024-12-27 01:26 | Emergency (ER) | payer OTHER ==
--- OUTSIDE RECORDS SUMMARY | 2024-12-27 01:30 | XMS REPORT | Continuity of Care Document ---
Author Name Unknown Address [address] [facility] [place] [address] Organization [facility] [place] Address [address] [facility] [place] [address] Care Team Providers Care Telecommunications Field Technician Name Role Phone Cerda BUILDING DISMANTLER, [facility] Primary Care Physician ANDREW BAUER Attending Clinician UnavailCOLLEEN Robles Attending Clinician Unavailable MAGALY FLANNERY Attending Clinician Unavailable SUMMER CONLEY Attending Clinician UnaCLEMENTE Cedeno Attending Clinician Unavailable LAB90 Attending Clinician Unavailable ONEIL LI Attending Clinician Unavailabl e MD CE Attending Clinician Unavailab ALONSO Marquis 1 Attending Clinician Unavailable THOMAS CAMPOS Attending Clinician Unavailabl e Payers Payer Name Policy Type Policy Number Effective Date Expirati on Date Source [facility] 94 9 [id number] 2024 00:00:00 Problems Condition Name Condition Details Condition Category Status Onset Date Resolution Date Last Treatment Date Treating Clinician Comments Source Immunodefi ciency due to conditions classified elsewhere (multi HCC) Immunodefi ciency due to conditions classified elsewhere (multi HCC) Disease Active 02-06 00:00: 00 Milagro Edmonds Externa dung DM type 2 with diabetic mixed hyperlipid emia (multi HCC) DM type 2 with diabetic mixed hyperlipid emia (multi HCC) Disease Active 10-25 00:00: 00 Milagro Edmonds Externa dung Depression with anxiety Depression with anxiety Disease Active 10-25 00:00: 00 Milagro Edmonds Externa l Gastroesop hageal reflux disease without esophagiti s Gastroesop hageal reflux disease without esophagiti s Disease Active 10-25 00:00: 00 Milagro Dobsonold - Externa l Seasonal allergic rhinitis due to pollen Seasonal allergic rhinitis due to pollen Disease Active 10-25 00:00: 00 Milagro Seybold - Externa l Mild intermitte nt asthma without complicati on (HHS-HCC) Mild intermitte nt asthma without complicati on (HHS-HCC) Disease Active 10-25 00:00: 00 Milagro Seybold - Externa l Snoring Snoring Disease Active 10-25 00:00: 00 Milagro Seybold - Externa l Primary insomnia Primary insomnia Disease Active 10-25 00:00: 00 Milagro Seybold - Externa l Primary hypertensi on Primary hypertensi on Disease Active 10-25 00:00: 00 Milagro Shawybold - Externa l Morbid obesity with BMI of 60.0-69.9, adult Morbid obesity with BMI of 60.0-69.9, adult Disease Active 10-25 00:00: 00 Milagro Shawybold - Externa l Allergies, Adverse Reactions, Alerts Allergy Name Allergy Type Status Severity Reaction(s) Onset Date Inactive Date Treating Clinician Comments Source Penicill ins - CLASS Propensi ty to adverse reaction to drug Active 7-16 00:00: 00 Penicill ins Propensi ty to adverse reaction to drug Active 2-15 00:00: 00 Penicill ins Propensi ty to adverse reaction s Active Hives 2-15 00:00: 00 Milagro Dobsonold - Externa l Social History Social Habit Start Date Stop Date Quantity Comments Source Gender identity 2022-10-19 13:02:25 Identifies as female gender (finding) Milagro Martin - External Sexual orientation Klaus Martin - External Alcohol intake 2023-07-10 00:00:00 2023-07-10 00:00:00 Ex-drinker (finding) Milagro Martin - External History of Social function 2023-05-08 00:00:00 2023-05-08 00:00:00 Milagro Martin - External Education - What is the highest level of school you have completed or the highest degree you have received? 2023-01-30 00:00:00 2023-01-30 00:00:00 High school graduate Milagro Veronica - External Tobacco use and exposure 2022-10-25 00:00:00 2022-10-25 00:00:00 Smokeless tobacco non-user Milagro Veronica - Wilmer Sex Assigned At 1995 00:00:00 1995 00:[birth year]:00 F Milagro Semicha - External Smoking Status Start Date Stop Date Source Never smoked tobacco Milagro Semicha - External Medications Ordered Medication Name Filled Medication Name Start Date Stop Date Current Medication? Ordering Clinician Indication Dosage Frequency Signature (SIG) Comments Components Source Levonorgest rel (MIRENA, 52 MG, IU) 2022-08 09:30: 18 Yes Milagro razo Glucose Blood in vitro Strip 2022-08 00:00: 00 Yes [id number] 3 1{each} 1 each by other route 2 times daily. Milagro razo glipiZIDE 5 MG oral Tablet 2022-08 00:00: 00 Yes 5mg Take 1 tablet (5 mg total) by mouth in the morning and 1 tablet (5 mg total) in the evening. Take before meals. Milagro razo hydroCHLORO thiazide 12.5 MG oral Capsule 2022-08 00:00: 00 Yes [id number] 12.5mg Take 1 capsule (12.5 mg total) by mouth daily As needed for swelling in the ankles. Milagro razo Omeprazole 20 MG oral Delayed Release Capsule 05-01 00:00: 00 Yes [id number] 20mg TAKE 1 CAPSULE BY MOUTH EVERY DAY Milagro razo Lisinopril 2.5 MG oral Tablet 05-01 00:00: 00 Yes [id number] 2.5mg TAKE 1 TABLET BY MOUTH EVERY DAY Milagro razo Atorvastati n Calcium 20 MG oral Tablet 05-01 00:00: 00 Yes [id number] 3 20mg TAKE 1 TABLET BY MOUTH EVERY DAY Milagro razo Levonorgest rel (MIRENA, 52 MG, IU) 01-30 09:56: 19 Yes Milagro razo glipiZIDE 10 MG oral Tablet 01-30 00:00: 00 Yes [id number] 3 10mg Take 1 tablet (10 mg total) by mouth daily (before a meal) Milagro razo Pioglitazon e HCl (Actos) 15 MG oral Tablet 01-30 00:00: 00 Yes [id number] 3 15mg Take 1 tablet (15 mg total) by mouth daily Milagro razo Pioglitazon e HCl (Actos) 30 MG oral Tablet 01-30 00:00: 00 01-30 00:00 :00 No [id number] 3 15mg Take 0.5 tablets (15 mg total) by mouth daily Milagro razo Metformin HCl 1000 MG oral Tablet 01-27 00:00: 00 Yes [id number] 3 TAKE 1 TABLET BY MOUTH TWICE A DAY Milagro razo Fluoxetine HCl 20 MG oral Capsule 01-26 00:00: 00 Yes [id number] 20mg Take 1 capsule (20 mg total) by mouth daily Milagro razo Albuterol Sulfate (PROAIR HFA IN) 10-25 10:15: 10-25 00:00 :00 No Milagro razo Loratadine 10 MG oral TABLET DISPERSIBLE 10-25 10:15: 10-25 00:00 :00 No Milagro razo Omeprazole 20 MG oral Delayed Release Capsule 10-25 10:15: 10-25 00:00 :00 No Milagro razo Levonorgest rel (MIRENA, 52 MG, IU) 10-25 09:58: 04 Yes Milagro razo Omeprazole 20 MG oral Delayed Release Capsule 10-25 00:00: 00 Yes [id number] 20mg Take 1 capsule (20 mg total) by mouth daily Milagro razo Loratadine 10 MG oral TABLET DISPERSIBLE 10-25 00:00: 00 Yes [id number] 10mg Take 1 tablet (10 mg total) by mouth daily Milagro razo Lisinopril 2.5 MG oral Tablet 10-25 00:00: 00 Yes [id number] 2.5mg Take 1 tablet (2.5 mg total) by mouth daily Milagro razo Atorvastati n Calcium 20 MG oral Tablet 10-25 00:00: 00 Yes [id number] 3 20mg Take 1 tablet (20 mg total) by mouth daily Milagro razo Albuterol HFA (PROAIR HFA) 108 (90 Base) MCG/ACT IN AERS 10-25 00:00: 00 Yes [id number] 2{puff} Q4H Inhale 2 puffs into the lungs every 4 hours as needed for wheezing Milagro razo Metformin HCl 1000 MG oral Tablet 10-25 00:00: 00 Yes [id number] 3 1000mg Take 1 tablet (1,000 mg total) by mouth 2 times daily Milagro razo glipiZIDE 5 MG oral Tablet 10-25 00:00: 00 Yes [id number] 3 5mg Take 1 tablet (5 mg total) by mouth daily (before a meal) Milagro razo Fluoxetine HCl 20 MG oral Capsule 10-25 00:00: 00 Yes [id number] 20mg Take 1 capsule (20 mg total) by mouth daily Milagro razo Trulicity 0.75 MG/0.5ML subcutaneou s Solution Pen-injecto r 10-25 00:00: 00 Yes [id number] 3 .75mg Inject 0.75 mg into the skin once a week Milagro razo Fluoxetine HCl 20 MG oral Capsule 10-19 00:00: 00 10-25 00:00 :00 No Milagro razo Lisinopril 2.5 MG oral Tablet 10-19 00:00: 00 10-25 00:00 :00 No Milagro razo glipiZIDE 5 MG oral Tablet - 00:00: 00 10-25 00:00 :00 No 5mg Take 5 mg by mouth daily Milagro razo Atorvastati n Calcium 20 MG oral Tablet 1- 00:00: 00 10-25 00:00 :00 No 20mg Take 20 mg by mouth daily Milagro razo lisinopril 2.5 mg tablet -16 00:00: 00 No 1mg metformin 1,000 mg tablet -16 00:00: 00 No 1mg Metformin HCl 1000 MG oral Tablet -16 00:00: 00 10-25 00:00 :00 No 1mg Take 1 mg by mouth 2 times daily Milagro razo hydrochloro thiazide 12.5 mg tablet 5-15 00:00: 00 No 1mg ProAir HFA 90 mcg/actuati on aerosol inhaler 0 -14 00:00: 00 No 2mcg/ac tuation metformin 500 mg tablet 5-14 00:00: 00 No 1mg hydroxyzine HCl 50 mg tablet 5-14 00:00: 00 No 1mg atorvastati n 20 mg tablet 0 5-14 00:00: 00 No 1mg fluoxetine 20 mg capsule 0 5-14 00:00: 00 No 1mg loratadine 10 mg tablet 0 4-21 00:00: 00 No 1mg Dose Unknown 4-11 00:00: 00 No atorvastati n 10 mg tablet 0 4-02 00:00: 00 No 1mg buspirone 5 mg tablet 0 4-02 00:00: 00 No 1mg Dose Unknown 0 4-02 00:00: 00 No loratadine 10 mg tablet 0 3-24 00:00: 00 No 1mg Dose Unknown 0 3-21 00:00: 00 No buspirone 5 mg tablet 2022-0 3-19 00:00: 00 No 1mg loratadine 10 mg tablet 3-05 00:00: 00 No 1mg buspirone 5 mg tablet 3-04 00:00: 00 No 1mg hydroxyzine HCl 50 mg tablet 3-04 00:00: 00 No 1mg Dose Unknown 3-04 00:00: 00 No Dose Unknown 0 3-04 00:00: 00 No Dose Unknown 0 3-04 00:00: 00 No Dose Unknown 3-04 00:00: 00 No Dose Unknown 2-16 00:00: 00 No Dose Unknown 2-16 00:00: 00 No atorvastati n 10 mg tablet 2-15 00:00: 00 No 1mg Dose Unknown 2-15 00:00: 00 No omeprazole 20 mg capsule,del ayed release 2-14 00:00: 00 No 1mg Dose Unknown 2-14 00:00: 00 No Dose Unknown 2-14 00:00: 00 No Mirena 20 mcg/24 hours (7 yrs) 52 mg intrauterin e device 2-14 00:00: 00 No 1(7 yrs) 52 mg Immunizations Ordered Immunization Name Filled Immunization Name Date Status Comments Source Pneumococcal Conjugate 15 (Vaxneuvance) 2023-01-30 00:00:00 Completed Milagro Martin - External Tdap- (Boostrix, Adacel) 2023-01-30 00:00:00 Completed Milagro Martin - External Pneumococcal Conjugate 15 (Vaxneuvance) 2023-01-30 00:00:00 Completed Milagro Edmonds External Tdap- (Boostrix, Adacel) 2023-01-30 00:00:00 Megha Guillen influenza, injectable 2021-10-04 00:00:00 Completed Influenza Virus Vaccine, No Preserv, age 6 months and up 2021-10-04 00:00:00 Completed Milagro Guillen Influenza Virus Vaccine, No Preserv, age 6 months and up 2021-10-04 00:00:00 Completed Milagro Seybold - External Influenza Virus Vaccine, No Preserv, age 6 months and up 2021-10-04 00:00:00 Completed Milagro Martin - External Influenza Virus Vaccine, No Preserv, age 6 months and up Unknown Completed Milagrochuckie Dobsonold - External Pneumococcal Conjugate 15 (Vaxneuvance) Unknown Completed Milagro Shawalanemilee - External Tdap- (Boostrix, Adacel) Unknown Completed Milagrochuckie Dobsonold - External Vital Signs Vital Name Observation Time Observation Value Comments S ource Systolic blood pressure 2023-07-10 15:28:00 128 mm[Hg] Milagro Seybo ld - External Diastolic blood pressure 2023-07-10 15:28:00 72 mm[Hg] Milagro ybo ld - External Heart rate 2023-07-10 15:28:00 95 /min Kelse y Seybold - External Body temperature 2023-07-10 15:28:00 36.67 Evelyn Milagro Seybold - External Respiratory rate 2023-07-10 15:28:00 18 /min Milagro Seybold - External Body height 2023-07-10 15:28:00 162.6 cm Courtney ey Seybold - External Body weight 2023-07-10 15:28:00 192.779 kg Courtney ey Seybold - External BMI 2023-07-10 15:28:00 72.95 kg/m2 Courtney ey Seybold - External Oxygen saturation in Arterial blood by Pulse oximetry 2023-07-10 15:28:00 100 /min Milagro Shawybo ld - External Systolic blood pressure 2023-01-30 14:54:00 120 mm[Hg] Milagro Seybo ld - External Diastolic blood pressure 2023-01-30 14:54:00 70 mm[Hg] Milagro ybo ld - External Heart rate 2023-01-30 14:54:00 96 /min Kelse y Seybold - External Body temperature 2023-01-30 14:54:00 36.83 Evelyn Milagro Seybold - External Respiratory rate 2023-01-30 14:54:00 20 /min Milagro Seybold - External Body height 2023-01-30 14:54:00 162.6 cm Courtney ey Seybold - External Body weight 2023-01-30 14:54:00 183.162 kg Courtney ey Seybold - External BMI 2023-01-30 14:54:00 69.31 kg/m2 Courtney ey Seybold - External Oxygen saturation in Arterial blood by Pulse oximetry 2023-01-30 14:54:00 97 /min Milagro Dobsono ld - External Systolic blood pressure 2022-10-25 15:53:00 132 mm[Hg] Milagro Shawybo ld - External Diastolic blood pressure 2022-10-25 15:53:00 81 mm[Hg] Milagro Seybo ld - External Heart rate 2022-10-25 15:53:00 103 /min Rasta vaughn Seybold - External Body temperature 2022-10-25 15:53:00 37.28 Evelyn Milagro Shawybold - External Respiratory rate 2022-10-25 15:53:00 16 /min Milagro Shawybold - External Body height 2022-10-25 15:53:00 162.6 cm Courtney mckeon Seybold - External Body weight 2022-10-25 15:53:00 181.892 kg Courtney mckeon Seybold - External BMI 2022-10-25 15:53:00 68.83 kg/m2 Courtney mckeon Seybold - External Oxygen saturation in Arterial blood by Pulse oximetry 2022-10-25 15:53:00 97 /min Milagro Dobsono ld - External BP Systolic 2022-03-05 13:21:00 149 mm[Hg] BP [...] 09:59:00 102.00 /min Respiratory Rate 2022-01-01 09:59:00 Respiratory Rate 2021-11-20 09:55:00 BP Systolic 2021-11-20 09:55:00 117 mm[Hg] BP Diastolic 2021-11-20 09:55:00 80 mm[Hg] Weight Measured 2021-11-20 09:55:00 376.00 pounds Height Measured 2021-11-20 09:55:00 64.00 inches Body Temperature 2021-11-20 09:55:00 97.30 degrees Heart Rate 2021-11-20 09:55:00 102.00 /min Body Temperature 2021-10-04 10:39:00 97.70 degrees Heart Rate 2021-10-04 10:39:00 93.00 /min Respiratory Rate 2021-10-04 10:39:00 16.00 /min BP Systolic 2021-10-04 10:39:00 118 mm[Hg] BP Diastolic 2021-10-04 10:39:00 83 mm[Hg] Weight Measured 2021-10-04 10:39:00 371.00 pounds Height Measured 2021-10-04 10:39:00 64.00 inches Procedures Procedure Date / Time Performed Performing Clinicia n Source 08634 Ekg W/ At Least 12 Bailey ds W/ I r 2022-01-01 00:00:00 Plan of Care Planned Activity Planned Date Details Comments Source Goal Plan of Care Note [code = 62136-5] Goal Plan of Care Note [code = 21658-4] Goal Plan of Care Note [code = 61796-1] Goal Plan of Care Note [code = 23436-1] Goal Plan of Care Note [code = 63925-1] Goal Plan of Care Note [code = 07079-4] Goal Plan of Care Note [code = 52127-9] Goal Plan of Care Note [code = 02642-9] Goal Plan of Care Note [code = 77613-5] Goal Plan of Care Note [code = 81267-9] Goal Plan of Care Note [code = 45698-2] Goal Plan of Care Note [code = 43099-1] Goal Plan of Care Note [code = 57948-3] Goal Plan of Care Note [code = 69829-0] Goal Plan of Care Note [code = 29499-7] Encounters Start Date/Time End Date/Time Encounter Type Admission Type Attending [facility] Care Department Encounter ID Source 2025-01-15 10:00:00 2025-01-15 10:00:00 Outpatient ANDREW BAUER [facility]LL [id number] [facility] 2024-12-21 00:00:00 2024-12-21 00:00:00 Outpatient ANDREW BAUER [facility] [id number] [facility] 2024-12-21 00:00:00 2024-12-21 00:00:00 Outpatient LISAVIKTORIACOLLEEN Barton [facility] [id number] [facility] 2024-11-23 00:00:00 2024-11-23 00:00:00 Outpatient ANDREW BAUER [facility] [id number] [facility] 2024-11-16 00:00:00 2024-11-16 00:00:00 Outpatient ANDREW BAUER [facility] [id number] [facility] 2024-11-16 00:00:00 2024-11-16 00:00:00 Outpatient CHARLIEEULALIA BartonAYLA SHELL [id number] [facility] 2024-10-28 14:20:00 2024-10-28 14:20:00 Outpatient PRUDENCIOMAGALY GONZALEZ [facility] [id number] [facility] 2024-10-09 00:00:00 2024-10-09 00:00:00 Outpatient PRECOLLEEN CASTANEDA [id number] [facility] 2024-10-04 10:15:00 2024-10-04 10:15:00 Outpatient COLLEEN OLSEN [id number] [facility] 2024-09-14 00:00:00 2024-09-14 00:00:00 Outpatient PRECOLLEEN CASTANEDA [id number] [facility] 2024-08-30 08:40:00 2024-08-30 08:40:00 Outpatient YAELSUMMER [facility] [id number] [facility] 2024-08-27 11:00:00 2024-08-27 11:00:00 Outpatient PREZAS, COLLEEN SHELL [facility] [id number] [facility] 2024-08-23 11:15:00 2024-08-23 11:15:00 Outpatient PREZAS, COLLEEN SHELL [facility] [id number] [facility] 2024-08-22 00:00:00 2024-08-22 00:00:00 Outpatient PREZAS, COLLEEN SHELL [facility] [id number] [facility] 2024-07-04 08:15:00 2024-07-04 08:15:00 Outpatient PREZAS, COLLEEN MILAGRO [facility] [id number] [facility] 2024-06-07 09:40:00 2024-06-07 09:40:00 Outpatient MAGALY FLANNERY [facility] [id number] [facility] 2024-05-24 00:00:00 2024-05-24 00:00:00 Outpatient PREZAS, COLLEEN SHELL [facility] [id number] [facility] 2024-05-23 00:00:00 2024-05-23 00:00:00 Outpatient PREZAS, COLLEEN [facility] [id number] [facility] 2024-05-23 00:00:00 2024-05-23 00:00:00 Outpatient ANDREW BAUER [facility] [id number] [facility] 2024-05-21 00:00:00 2024-05-21 00:00:00 Outpatient PREZAS, COLLEEN [facility] [id number] [facility] 2024-05-08 00:00:00 2024-05-08 00:00:00 Outpatient PREZAS, COLLEEN [facility] [id number] [facility] 2024-04-21 00:00:00 2024-04-21 00:00:00 Outpatient PREZAS, COLLEEN [facility] [id number] [facility] 2024-04-11 09:45:00 2024-04-11 09:45:00 Outpatient PREZASCOLLEEN [facility] [id number] [facility]24-[facility]-22 00:00:00 2024-03-22 00:00:00 Outpatient PREZAS, COLLEEN SHELL [facility] [id number] [facility] 2024-03-13 00:00:00 2024-03-13 00:00:00 Outpatient PREZAS, COLLEEN SHELL [facility] [id number] [facility] 2024-02-29 11:15:00 2024-02-29 11:15:00 Outpatient PREZAS, COLLEEN SHELL [facility] [id number] [facility] 2024-02-23 00:00:00 2024-02-23 00:00:00 Outpatient PREZAS, COLLEEN SHELL [facility] [id number] [facility] 2024-02-20 00:00:00 2024-02-20 00:00:00 Outpatient PREZAS, COLLEEN SHELL [facility] [id number] [facility] 2024-02-14 00:00:00 2024-02-14 00:00:00 Outpatient PREZAS, COLLEEN SHELL [facility] [id number] [facility] 2024-02-12 13:00:00 2024-02-12 13:00:00 Outpatient PRUDENCIOMAGALY GONZALEZ [facility] [id number] [facility]24-01-27 00:00:00 2024-01-27 00:00:00 Outpatient LIZETTEANDREW [id number] [facility] 2024-01-17 00:00:00 2024-01-17 00:00:00 Outpatient PREZASCOLLEEN [facility] [id number] [facility] 2024-01-16 13:00:00 2024-01-16 13:00:00 Outpatient MAGALY FLANNERY [facility] [id number] [facility] 2024-01-01 09:45:00 2024-01-01 09:45:00 Outpatient PREZAS, COLLEEN [facility] [id number] [facility] 2023-11-25 00:00:00 2023-11-25 00:00:00 Outpatient PREZASCOLLEENCHUCKIE SHELL [id number] [facility] 2023-11-24 00:00:00 2023-11-24 00:00:00 Outpatient ANDREW BAUERCHUCKIE SHELL [id number] [facility] 2023-11-17 10:15:00 2023-11-17 10:15:00 Outpatient PREZASCOLLEEN [facility] [id number] [facility] 2023-11-07 00:00:00 2023-11-07 00:00:00 Outpatient PREZASCOLLEENCHUCKIE SHELL [id number] [facility] 2023-11-03 11:00:00 2023-11-03 11:00:00 Outpatient PRUDENCIOMAGALY GONZALEZ [facility] [id number] [facility] 2023-10-30 11:00:00 2023-10-30 11:00:00 Outpatient PRUDENCIO MAGALY SHELL [id number] [facility] 2023-10-18 00:00:00 2023-10-18 00:00:00 Outpatient PREZASCOLLEEN [facility] [id number] [facility] 2023-10-10 10:15:00 2023-10-10 10:15:00 Outpatient PREZAS, COLLEEN [facility] [id number] [facility] 2023-08-20 00:00:00 2023-08-20 00:00:00 Outpatient PREZASCOLLEEN [facility] [id number] [facility] 2023-08-19 00:00:00 2023-08-19 00:00:00 Outpatient PREZASCOLLEEN [facility] SHELL [id number] [facility] 2023-08-07 11:00:00 2023-08-07 11:00:00 Outpatient PRUDENCIOMAGALY GONZALEZ [facility] [id number] [facility] 2023-08-05 00:00:00 2023-08-05 00:00:00 Outpatient ANDREW BAUER [facility] [id number] [facility] 2023-08-04 13:00:00 2023-08-04 13:00:00 Outpatient MAGALY FLANNERY [facility] [id number] [facility] 2023-08-04 10:00:00 2023-08-04 10:00:00 Outpatient CLEMENTE CÁRDENAS [facility] [id number] [facility] 2023-07-29 00:00:00 2023-07-29 00:00:00 Outpatient PREZAS, COLLEEN [facility] [id number] [facility] 2023-07-10 10:20:00 2023-07-10 10:20:00 Outpatient ILDEFONSO [facility] [id number] [facility] 2023-07-10 09:30:00 2023-07-10 09:30:00 Outpatient LIZETTE, ANDREW [facility] [id number] [facility] 2023-07-10 00:00:00 2023-07-10 00:00:00 Outpatient LIZETTE ANDREW [facility] [id number] [facility] 00:00:00 2023-07-10 00:00:00 Outpatient ANDREW BAUER [facility] [id number] [facility] 2023-07-10 00:00:00 2023-07-10 00:00:00 Outpatient LIZETTE, ANDREW [facility] [id number] [facility] 2023-07-10 00:00:00 2023-07-10 00:00:00 Outpatient ANDREW BAUER [facility] [id number] [facility] 2023-05-05 10:00:00 2023-05-05 10:00:00 Outpatient PREZAS, COLLEEN [facility] [id number] [facility] 2023-04-29 00:00:00 2023-04-29 00:00:00 Outpatient PREZAS, COLLEEN SHELL [id number] [facility] 2023-04-04 00:00:00 2023-04-04 00:00:00 Outpatient PREZAS, COLLEEN SHELL [id number] [facility] 2023-03-02 08:45:00 2023-03-02 08:45:00 Outpatient PREZAS, COLLEEN SHELL [id number] [facility] 2023-02-28 00:00:00 2023-02-28 00:00:00 Outpatient ONEIL LI [facility] [id number] [facility] 2023-02-22 00:00:00 2023-02-22 00:00:00 Outpatient MD MILAGRO TORRES [id number] [facility] 2023-02-16 15:00:00 2023-02-16 15:00:00 Outpatient ONEIL LI [facility] [id number] [facility] 2023-02-03 00:00:00 2023-02-03 00:00:00 Outpatient PREZASCOLLEEN [facility] [id number] [facility] 2023-01-30 10:50:00 2023-01-30 10:50:00 Outpatient ILDEFONSO [facility] [id number] [facility] 10:00:00 2023-01-30 10:00:00 Outpatient PREZASCOLLEEN [facility] SHE[facility] [id number] [facility] 2023-01-27 13:30:00 2023-01-27 13:30:00 Outpatient ALONSO JEFFERSON [id number] [facility] 2023-01-27 00:00:00 2023-01-27 00:00:00 Outpatient MD MILAGRO TORRES [id number] [facility] 2023-01-27 00:00:00 2023-01-27 00:00:00 Outpatient PREZAS COLLEEN SHELL [id number] [facility] 2023-01-26 00:00:00 2023-01-26 00:00:00 Outpatient PREZASCOLLEEN [id number] [facility] yb[facility] 2023-01-22 00:00:00 2023-01-22 00:00:00 Outpatient PREZASCOLLEEN [id number] [facility] 2022-12-28 00:00:00 2022-12-28 00:00:00 Outpatient MD MILAGRO TORRES [id number] [facility] 2022-12-28 00:00:00 2022-12-28 00:00:00 Outpatient ANDRES THOMAS [facility] [id number] [facility] 2022-12-27 00:00:00 2022-12-27 00:00:00 Outpatient MD MILAGRO TORRES [id number] [facility] 2022-12-18 00:00:00 2022-12-18 00:00:00 Outpatient MILAGRO SHELL [id number] [facility] micha 2022-12-13 00:00:00 2022-12-13 00:00:00 Outpatient MD MILAGRO TORRES [id number] [facility] 2022-11-22 08:30:00 2022-11-22 08:30:00 Outpatient PREVIKTORIACOLLEEN Barton [facility] [id number] [facility] 2022-11-[facility]:00:00 2022-11-11 00:00:00 Outpatient PREZAMick COLLEEN SHELL [id number] [facility] 00:00:00 2022-11-11 00:00:00 Outpatient PREZACOLLEEN Barton [facility] SHELL [id number] [facility] 2022-10-27 00:00:00 2022-10-27 00:00:00 Outpatient EULALIA OLSENAYLA SHELL [id number] [facility] 2022-10-25 10:30:00 2022-10-25 10:30:00 Outpatient LABManuel SHELL [id number] [facility] 2022-10-25 09:45:00 2022-10-25 09:45:00 Outpatient PREZACOLLEEN Barton MILAGRO SHELL [id number] [facility] 2022-06-04 10:24:32 2022-06-04 10:24:32 Outpatient SFA SFA [id number] Jamarcus Vania Frank 2022-03-05 00:00:00 2022-03-05 00:00:00 Outpatient Visit [id number] Results Test Description Test Time Test Comments Results Result Co mments Source LIPID [id number] 05:16:56* Test Item Value Reference Range Interpretation Comme nts CHOLESTEROL (test code = 2210) 154 MG/DL <200 TRIGLYCERIDES (test code = 2232) 190 MG/DL <150 H HDL CHOLESTEROL (test code = 2220) 33 MG/DL >39 L CALC LDL CHOL (test code = 2237) 93 MG/DL <100 NOTE: CALCULATED LDL IS BASED ON MELISSA-GARCÍA METHOD WHICHINCLUDES ADJUSTABLE TRIGLYCERIDE:VLDL CHOLESTEROL RATIO.THIS FACTOR VARIES BY MEASURED TRIGLYCERIDE AND NON-HDLCHOLESTEROL CONCENTRATIONS WITH INCREASED CALCULATED LDL SEENIN HIGHER TRIGLYCERIDE OR LOWER NON-HDL SPECIMENS. FOR MOREINFORMATION, SEE CLIENT ANNOUNCEMENT AT [email or web address] RISK RATIO LDL/HDL (test code = 2238) 2.82 RATIO <3.22 HEMOGLOBIN [id number] 12:46:24* Test Item Value Reference Range Interpretation Comme nts HEMOGLOBIN A1c (test code = 08246) 7.4 % 4.2-5.6 H [employer] GUIDELINES FOR HGB A1C: PREDIABETES/INCREASED RISK . . . . . . . 5.7-6.4% DIAGNOSIS OF DIABETES . . . . . . . . . >=6.5% WITH CONFIRMATION OR APPROPRIATE SYMPTOMS NOTE: ASSAY MAY BE AFFECTED BY HEMOGLOBINOPATHIES (SICKLE CELL ANEMIA, S-C DISEASE, OTHERS) OR ARTIFICIALLY LOWERED BY DECREASED RED CELL SURVIVAL (HEMOLYTIC ANEMIAS, BLOOD LOSS, ETC.). CONSIDER ALTERNATE TESTING OR LABORATORY CONSULTATION. UNLESS OTHERWISE INDICATED, ALL TESTING PERFORMED [facility] [employer] [address] [place] [id number] SHIP PAINTER HELPER: ZEESHAN SRIVASTAVA M.D. CLIA NUMBER [id number] [facility] [place]. [id number] LIPID [id number] 23:41:38* Test Item Value Reference Range Interpretation Comme nts CHOLESTEROL (test code = 2210) 143 MG/DL <200 TRIGLYCERIDES (test code = 2232) 154 MG/DL <150 H HDL CHOLESTEROL (test code = 2220) 33 MG/DL >39 L CALC LDL CHOL (test code = 2237) 84 MG/DL <100 NOTE: CALCULATED LDL IS BASED ON MELISSA-GARCÍA METHOD WHICHINCLUDES ADJUSTABLE TRIGLYCERIDE:VLDL CHOLESTEROL RATIO.THIS FACTOR VARIES BY MEASURED TRIGLYCERIDE AND NON-HDLCHOLESTEROL CONCENTRATIONS WITH INCREASED CALCULATED LDL SEENIN HIGHER TRIGLYCERIDE OR LOWER NON-HDL SPECIMENS. FOR MOREINFORMATION, SEE CLIENT ANNOUNCEMENT AT [email or web address] RISK RATIO LDL/HDL (test code = 2238) 2.55 RATIO <3.22 HEMOGLOBIN [id number] 04:36:47* Test Item Value Reference Range Interpretation Comme nts HEMOGLOBIN A1c (test code = 77016) 9.0 % 4.2-5.6 H [employer] GUIDELINES FOR HGB A1C: PREDIABETES/INCREASED RISK . . . . . . . 5.7-6.4% DIAGNOSIS OF DIABETES . . . . . . . . . >=6.5% WITH CONFIRMATION OR APPROPRIATE SYMPTOMS NOTE: ASSAY MAY BE AFFECTED BY HEMOGLOBINOPATHIES (SICKLE CELL ANEMIA, S-C DISEASE, OTHERS) OR ARTIFICIALLY LOWERED BY DECREASED RED CELL SURVIVAL (HEMOLYTIC ANEMIAS, BLOOD LOSS, ETC.). CONSIDER ALTERNATE TESTING OR LABORATORY CONSULTATION. UNLESS OTHERWISE INDICATED, ALL TESTING PERFORMED [facility] [employer] [address] [place] [address] SHIP PAINTER HELPER: ZEESHAN SRIVASTAVA M.D. CLIA NUMBER [id number] [place]. [id number] ALBUMIN, URINE, [id number] 02:46:02* Test Item Value Reference Range Interpretation Comme nts ALBUMIN, URINE, RANDOM (test code = 11888) 2.1 MG/DL NOT ESTAB UNLESS OTHERWISE INDICATED, ALL TESTING PERFORMED [employer] [address] [place] [address] SHIP PAINTER HELPER: ZEESHAN SRIVASTAVA M.D. CLIA NUMBER [id number] [place]. [id number] MICROALBUMIN, [id number] 00:00:00* Test Item Value Reference Range Interpretation Comme nts ALBUMIN, URINE, RANDOM (test code = 54193) 2.1 MG/DL COMPREHENSIVE METABOLIC [id number] 01:13:50* Test Item Value Reference Range Interpretation Comme nts GLUCOSE (test code = 2217) 239 MG/DL 70-99 H BUN (test code = 2207) 10 MG/DL 6-20 CREATININE (test code = 2213) 0.61 MG/DL 0.60-1.30 eGFR (2020 CKD-EPI) (test code = ) 125 ML/MIN/1.73 >60 CALC BUN/CREAT (test code = 2234) 16 RATIO 6-28 SODIUM (test code = 2230) 140 MEQ/L 133-146 POTASSIUM (test code = 2227) 4.2 MEQ/L 3.5-5.4 CHLORIDE (test code = 2214) 102 MEQ/L 95-107 CARBON DIOXIDE (test code = 2205) 25 MEQ/L 19-31 CALCIUM (test code = 2208) 9.7 MG/DL 8.5-10.5 PROTEIN, TOTAL (test code = 2228) 7.1 G/DL 6.1-8.3 ALBUMIN (test code = 2200) 4.4 G/DL 3.5-5.2 CALC GLOBULIN (test code = 2239) 2.7 G/DL 1.9-3.7 CALC A/G RATIO (test code = 2233) 1.6 RATIO 1.0-2.6 BILIRUBIN, TOTAL (test code = 2206) 0.4 MG/DL See_Comment [Automated me ssage] The system which generated this result transmitted reference range: <=1.2. The reference range was not used to interpret this result as normal/abnormal. ALKALINE PHOSPHATASE (test code = 2203) 93 U/L 40-112 AST (test code = 2217) 18 U/L 9-40 ALT (test code = 2218) 20 U/L 5-40 LIPID [id number] 01:13:50* Test Item Value Reference Range Interpretation Comme nts CHOLESTEROL (test code = 2210) 161 MG/DL <200 TRIGLYCERIDES (test code = 2232) 252 MG/DL <150 H HDL CHOLESTEROL (test code = 2220) 34 MG/DL >39 L CALC LDL CHOL (test code = 7) 94 MG/DL <100 NOTE: CALCULATED LDL IS BASED ON MELISSA-GARCÍA METHOD WHICHINCLUDES ADJUSTABLE TRIGLYCERIDE:VLDL CHOLESTEROL RATIO.THIS FACTOR VARIES BY MEASURED TRIGLYCERIDE AND NON-HDLCHOLESTEROL CONCENTRATIONS WITH INCREASED CALCULATED LDL SEENIN HIGHER TRIGLYCERIDE OR LOWER NON-HDL SPECIMENS. FOR MOREINFORMATION, SEE CLIENT ANNOUNCEMENT AT [email or web address] RISK RATIO LDL/HDL (test code = 2238) 2.76 RATIO <3.22 LIPID [id number] 00:00:00* Test Item Value Reference Range Interpretation Comme nts CHOLESTEROL (test code = 2210) 161 MG/DL TRIGLYCERIDES (test code = 2232) 252 MG/DL HDL CHOLESTEROL (test code = 2220) 34 MG/DL CALC LDL CHOL (test code = 2237) 94 MG/DL RISK RATIO LDL/HDL (test cod e = 2238) 2.76 RATIO COMPREHENSIVE METABOLIC [id number] 00:00:00* Test Item Value Reference Range Interpretation Comme nts GLUCOSE (test code = 2217) 239 MG/DL BUN (test code = 2208) 10 MG/DL CREATININE (test code = 2214) 0.61 MG/DL eGFR (2020 CKD-EPI) (test code = 34840) 125 ML/MIN/1.73 CALC BUN/CREAT (test code = 2235) 16 RATIO SODIUM (test code = 2231) 140 MEQ/L POTASSIUM (test code = 2228) 4.2 MEQ/L CHLORIDE (test code = 2215) 102 MEQ/L CARBON DIOXIDE (test code = 2206) 25 MEQ/L CALCIUM (test code = 2209) 9.7 MG/DL PROTEIN, TOTAL (test code = 2229) 7.1 G/DL ALBUMIN (test code = 2201) 4.4 G/DL CALC GLOBULIN (test code = 2240) 2.7 G/DL CALC A/G RATIO (test code = 2234) 1.6 RATIO BILIRUBIN, TOTAL (test code = 2207) 0.4 MG/DL ALKALINE PHOSPHATASE (test code = 2204) 93 U/L AST (test code = 2218) 18 U/L ALT (test code = 2219) 20 U/L HEMOGLOBIN [id number] 04:34:55* Test Item Value Reference Range Interpretation Comme nts HEMOGLOBIN A1c (test code = 86556) 9.3 % 4.2-5.6 H [employer] GUIDELINES FOR HGB A1C: PREDIABETES/INCREASED RISK . . . . . . . 5.7-6.4% DIAGNOSIS OF DIABETES . . . . . . . . . >=6.5% WITH CONFIRMATION OR APPROPRIATE SYMPTOMS NOTE: ASSAY MAY BE AFFECTED BY HEMOGLOBINOPATHIES (SICKLE CELL ANEMIA, S-C DISEASE, OTHERS) OR ARTIFICIALLY LOWERED BY DECREASED RED CELL SURVIVAL (HEMOLYTIC ANEMIAS, BLOOD LOSS, ETC.). CONSIDER ALTERNATE TESTING OR LABORATORY CONSULTATION. HEMOGLOBIN [id number] 00:00:00* Test Item Value Reference Range Interpretation Comme [facility] HEMOGLOBIN A1c (test code = 19995) 9.3 % HEMOGLOBIN [id number] 05:22:37* Test Item Value Reference Range Interpretation Comme nts HEMOGLOBIN A1c (test code = 67578) 8.7 % 4.2-5.6 H [employer] GUIDELINES FOR HGB A1C: PREDIABETES/INCREASED RISK . . . . . . . 5.7-6.4% DIAGNOSIS OF DIABETES . . . . . . . . . >=6.5% WITH CONFIRMATION OR APPROPRIATE SYMPTOMS NOTE: ASSAY MAY BE AFFECTED BY HEMOGLOBINOPATHIES (SICKLE CELL ANEMIA, S-C DISEASE, OTHERS) OR ARTIFICIALLY LOWERED BY DECREASED RED CELL SURVIVAL (HEMOLYTIC ANEMIAS, BLOOD LOSS, ETC.). CONSIDER ALTERNATE TESTING OR LABORATORY CONSULTATION. COMPREHENSIVE METABOLIC [id number] 04:02:34* Test Item Value Reference Range Interpretation Comme nts GLUCOSE (test code = 2217) 147 MG/DL 70-99 H BUN (test code = 8) 9 MG/DL 6-20 CREATININE (test code = 2214) 0.51 MG/DL 0.60-1.30 L eGFR (2020 CKD-EPI) (test code = 30800) 130 ML/MIN/1.73 >60 CALC BUN/CREAT (test code = 2235) 18 RATIO 6-28 SODIUM (test code = 2231) 140 MEQ/L 133-146 POTASSIUM (test code = 2228) 4.5 MEQ/L 3.5-5.4 CHLORIDE (test code = 2215) 100 MEQ/L 95-107 CARBON DIOXIDE (test code = 2206) 25 MEQ/L 19-31 CALCIUM (test code = 2209) 9.4 MG/DL 8.5-10.5 PROTEIN, TOTAL (test code = 222) 7.4 G/DL 6.1-8.3 ALBUMIN (test code = 220) 4.3 G/DL 3.5-5.2 CALC GLOBULIN (test code = 2240) 3.1 G/DL 1.9-3.7 CALC A/G RATIO (test code = 2234) 1.4 RATIO 1.0-2.6 BILIRUBIN, TOTAL (test code = 2207) 0.4 MG/DL See_Comment [Automated me ssage] The system which generated this result transmitted reference range: <=1.2. The reference range was not used to interpret this result as normal/abnormal. ALKALINE PHOSPHATASE (test code = 2204) 93 U/L 40-112 AST (test code = 2218) 22 U/L 9-40 ALT (test code = 2219) 25 U/L 5-40 LIPID [id number] 04:02:34* Test Item Value Reference Range Interpretation Comme nts CHOLESTEROL (test code = 2210) 194 MG/DL <200 TRIGLYCERIDES (test code = 2232) 185 MG/DL <150 H HDL CHOLESTEROL (test code = 2220) 35 MG/DL >39 L CALC LDL CHOL (test code = 2237) 128 MG/DL <100 H NOTE: CALCULATED LDL IS BASED ON MELISSA-GARCÍA METHOD WHICHINCLUDES ADJUSTABLE TRIGLYCERIDE:VLDL CHOLESTEROL RATIO.THIS FACTOR VARIES BY MEASURED TRIGLYCERIDE AND NON-HDLCHOLESTEROL CONCENTRATIONS WITH INCREASED CALCULATED LDL SEENIN HIGHER TRIGLYCERIDE OR LOWER NON-HDL SPECIMENS. FOR MOREINFORMATION, SEE CLIENT ANNOUNCEMENT AT [email or web address] RISK RATIO LDL/HDL (test code = 2238) 3.66 RATIO <3.22 H HIV 1/2 4TH GEN, RFLX [id number] 03:54:00* Test Item Value Reference Range Interpretation Comme nts HIV 1/2 4TH GEN, RFLX CONF ( test code = 3514) NON-REACTIVE NON-REACTIVE HEPATITIS PANEL, [id number] 03:54:00* Test Item Value Reference Range Interpretation Comme nts HEPATITIS A IgM (test code = 68213) NON-REACTIVE NON-REACTIVE HEPATITIS B CORE IgM (test code = 4644) NON-REACTIVE NON-REACTIVE HEPATITIS B SURF AG (test code = 2739) NON-REACTIVE NON-REACTIVE HEPATITIS C ANTIBODY (test code = 4675) NON-REACTIVE NON-REACTIVE INTERPRETATION HEPATITIS A: (test code = 2552) (NOTE) Hepatitis A sero logy shows no evidence of acute hepatitis A. INTERPRETATION HEPATITIS B: (test code = 92119) (NOTE) Hepatitis B sero logy shows no evidence of acute hepatitis B andno indication of exposure to hepatitis B virus in the previous mary kay eight months. INTERPRETATION HEPATITIS C: (test code = 84361) (NOTE) Hepatitis C sero logy shows no evidence of exposure to hepatitisC virus at this time. It can take up to 12 months after exposure tothe hepatitis C virus for antibodies to become detectable in the blood in certain patients. UNLESS OTHERWISE INDICATED, ALL TESTING PERFORMED [facility] [employer] [employer] [address] [place] [address] SHIP PAINTER HELPER: ZEESHAN SRIVASTAVA M.D. CLIA NUMBER [id number] [facility] [place]. [id number] CBC W/AUTO DIFF WITH [id number] 03:49:45* Test Item Value Reference Range Interpretation Comme nts WBC (test code = 1001) 10.4 K/UL 3.5-11.0 RBC (test code = 1002) 5.34 M/UL 3.80-5.40 HEMOGLOBIN (test code = 1003) 12.8 G/DL 11.5-15.5 HEMATOCRIT (test code = 1004) 38.7 % 34.0-45.0 MCV (test code = 1005) 72.5 fL 80.0-99.0 L MCH (test code = 1006) 24.0 PG 25.0-33.0 L MCHC (test code = 1007) 33.1 G/DL 31.0-36.0 RDW (test code = 1038) 15.7 % 11.5-15.0 H NEUTROPHILS (test code = 1008) 60.3 % LYMPHOCYTES (test code = 1010) 30.9 % MONOCYTES (test code = 1011) 4.5 % EOSINOPHILS (test code = 1012) 2.9 % BASOPHILS (test code = 1013) 0.5 % IMMATURE GRANULOCYTES (test code = 1036) 0.9 % NUCLEATED RBCS (test code = 1065) 0.0 /100 WBC'S See_Comment [Automated messa ge] The system which generated this result transmitted reference range: 0.0. The reference range was not used to interpret this result as normal/abnormal. PLATELET COUNT (test code = 1015) 357 K/UL 130-400 ABSOLUTE NEUTROPHILS (test code = 1066) 6.30 K/UL 1.50-7.50 ABSOLUTE LYMPHOCYTES (test code = 1067) 3.22 K/UL 1.00-4.00 ABSOLUTE MONOCYTES (test code = 1068) 0.47 K/UL 0.20-1.00 ABSOLUTE EOSINOPHILS (test code = 1040) 0.30 K/UL 0.00-0.50 ABSOLUTE BASOPHILS (test code = 1069) 0.05 K/UL 0.00-0.20 ABS IMMATURE GRANULOCYTES (test code = 1020) 0.09 K/UL 0.00-0.10 ABS NUCLEATED RBCS (test code = 59681) 0.00 K/UL 0.00-0.11 CBC W/AUTO [id number] 00:00:00* Test Item Value Reference Range Interpretation Comme nts WBC (test code = 1001) 10.4 K/UL [...] = 1013) 0.5 % IMMATURE GRANULOCYTES (test code = 1036) 0.9 % NUCLEATED RBCS (test code = 1065) 0.0 /100WBC'S PLATELET COUNT (test code = 1015) 357 K/UL ABSOLUTE NEUTROPHILS (test c ode = 1066) 6.30 K/UL ABSOLUTE LYMPHOCYTES (test c ode = 1067) 3.22 K/UL ABSOLUTE MONOCYTES (test cod e = 1068) 0.47 K/UL ABSOLUTE EOSINOPHILS (test c ode = 1040) 0.30 K/UL ABSOLUTE BASOPHILS (test cod e = 1069) 0.05 K/UL ABS IMMATURE GRANULOCYTES (t est code = 1020) 0.09 K/UL ABS NUCLEATED RBCS (test cod e = 51668) 0.00 K/UL COMPREHENSIVE METABOLIC [id number] 00:00:00* Test Item Value Reference Range Interpretation Comme nts GLUCOSE (test code = 2217) 147 MG/DL BUN (test code = 2208) 9 MG/DL CREATININE (test code = 2214) 0.51 MG/DL eGFR (2020 CKD-EPI) (test code = 79621) 130 ML/MIN/1.73 CALC BUN/CREAT (test code = 2235) 18 RATIO SODIUM (test code = 2231) 140 MEQ/L POTASSIUM (test code = 2228) 4.5 MEQ/L CHLORIDE (test code = 2215) 100 MEQ/L CARBON DIOXIDE (test code = 2206) 25 MEQ/L CALCIUM (test code = 2209) 9.4 MG/DL PROTEIN, TOTAL (test code = 2229) 7.4 G/DL ALBUMIN (test code = 2201) 4.3 G/DL CALC GLOBULIN (test code = 2240) 3.1 G/DL CALC A/G RATIO (test code = 2234) 1.4 RATIO BILIRUBIN, TOTAL (test code = 2207) 0.4 MG/DL ALKALINE PHOSPHATASE (test code = 2204) 93 U/L AST (test code = 2218) 22 U/L ALT (test code = 2219) 25 U/L LIPID [id number] 00:00:00* Test Item Value Reference Range Interpretation Comme nts CHOLESTEROL (test code = 2210) 194 MG/DL TRIGLYCERIDES (test code = 2232) 185 MG/DL HDL CHOLESTEROL (test code = 2220) 35 MG/DL CALC LDL CHOL (test code = 2237) 128 MG/DL RISK RATIO LDL/HDL (test cod e = 2238) 3.66 RATIO HEMOGLOBIN A1c [ADDED]2021-10-05 00:00:00* Test Item Value Reference Range Interpretation Comme nts HEMOGLOBIN A1c (test code = 17897) 8.7 % HIV 1/2 4TH GEN, RFLX CONF [ADDED]2021-10-05 00:00:00* Test Item Value Reference Range Interpretation Comme nts HIV 1/2 4TH GEN, RFLX CONF ( test code = 3514) NON-REACTIVE HEPATITIS PANEL, ACUTE [ADDED]2021-10-05 00:00:00* Test Item Value Reference Range Interpretation Comme nts HEPATITIS A IgM (test code = 59349) NON-REACTIVE HEPATITIS B CORE IgM (test c ode = 4644) NON-REACTIVE HEPATITIS B SURF AG (test co de = 2739) NON-REACTIVE HEPATITIS C ANTIBODY (test c ode = 4602) NON-REACTIVE INTERPRETATION HEPATITIS A: (test code = 2552) (NOTE) INTERPRETATION HEPATITIS B: (test code = 54443) (NOTE) INTERPRETATION HEPATITIS C: (test code = 53814) (NOTE)
[2024-12-27 02:31] LABS: Specific Gravity 1.016 (1.005-1.030)
[2024-12-27 02:33] LABS: Specific Gravity 1.016 (1.005-1.030); Sqamous Epithelial <5 /HPF (None Seen); Urine Bacteria None Seen /HPF (<20); Urine Bilirubin NEGATIVE (Negative); Urine Blood Negative (Negative); Urine Clarity Extremely Turbid (Clear); Urine Color Light-Yellow (Yellow); Urine Culture Reflex Order NOT NEEDED; Urine Glucose NEGATIVE (Negative); Urine Ketones NEGATIVE (Negative); Urine Microscopic Reflex YN ORDER UMIC; Urine Mucus Slight /HPF (None Seen); Urine Nitrite NEGATIVE (Negative); Urine Protein NEGATIVE (Negative); Urine RBC None Seen /HPF (None Seen); Urine Urobilinogen Normal (Normal); Urine WBC <5 /HPF (<5); Urine pH 6.5 (5.0-7.0)
[2024-12-27] MEDS ORDERED: HYDROCODONE/APAP 10/325 TAB ONE (03:10)
[2024-12-27] MEDS ORDERED: methocarbamoL 750 MG TAB ONE (03:10)
[2024-12-27] MEDS ORDERED: KETOROLAC 30 MG/ML INJ ONE (03:10)
--- NOTE | 2024-12-27 03:20 | EDPHYS ---
Physician Documentation [facility] Name: Gregorio Szymanski Age: 29 yrs Sex: Female : 1995 Arrival Date: 12/27/2024 Time: 01:26 Bed DX3 Private MD: TONY Physician Sherif Combs HPI: 12/27 02:15 This 29 yrs old Female presents to ER via Ambulatory with complaints of Back Pain. cp 02:15 The patient presents with pain. The symptoms are located in the low back. Onset: The cp symptoms/episode began/occurred yesterday. The pain radiates to the right buttock. Associated signs and symptoms: Pertinent positives: numbness of right buttock, Pertinent negatives: dysuria, fever, hematuria, incontinence. The problem was sustained pain started while sitting down. Severity of symptoms: in the emergency department the symptoms are unchanged, despite home interventions. 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 - Infectious Disease History:: Denies. - Social history:: Smoking status: Patient denies any tobacco usage or history of. ROS: 02:20 Back: Positive for pain at rest, pain with movement, of the right low back, cp 02:20 Constitutional: Negative for body aches, chills, fever, poor PO intake, cp 02:20 Abdomen/GI: Negative for abdominal pain, nausea, vomiting, and diarrhea, bowel incontinence, 02:20 : Negative for urinary symptoms, bladder incontinence, 02:20 Neck: Negative for pain with movement, pain at rest, stiffness, cp 02:20 Respiratory: Negative for cough, shortness of breath, wheezing, 02:20 Neuro: Positive for numbness, Negative for dizziness, headache, weakness, cp 02:20 All other systems are negative, Exam: 02:25 Constitutional: The patient appears in no acute distress, alert, awake, non-toxic, well cp developed, well nourished, morbid obesity 02:25 Head/Face: Normocephalic, atraumatic. cp 02:25 Eyes: Periorbital structures: appear normal, Conjunctiva: normal, no exudate, no injection, Sclera: no appreciated abnormality, Lids and lashes: appear normal, bilaterally, 02:25 ENT: External ear(s): are unremarkable, Nose: is normal, Mouth: Lips: moist, Oral mucosa: moist, Posterior pharynx: Airway: no evidence of obstruction, patent, 02:25 Chest/axilla: Inspection: normal, 02:25 Cardiovascular: Rate: tachycardic, Rhythm: regular, 02:25 Respiratory: the patient does not display signs of respiratory distress, Respirations: normal, no use of accessory muscles, no retractions, labored breathing, is not present, Breath sounds: are clear throughout, no decreased breath sounds, no stridor, no wheezing, 02:25 Abdomen/GI: Inspection: obese 02:25 Back: pain, that is moderate, of the right mid back and right low back, ROM is cp painful, with all movement, CVA tenderness, is absent, 02:25 Neuro: Orientation: to person, place \T\ time. Mentation: is normal, Motor: moves all fours, strength is normal, Gait: is steady, at a normal pace, Vital Signs: 01:54 Weight 188.24 kg; Height 5 ft. 4 in. ; Pain 7/10; vc1 01:57 BP 178 / 101; Pulse 114; Resp 20; Temp 99; Pulse Ox 100% ; vc1 03:43 BP 168 / 99; Pulse 104; Resp 20; Pulse Ox 98% ; vc1 01:54 Body Mass Index 71.23 (188.24 kg, 162.56 cm) vc1 01:54 Pain Scale: Adult vc1 MDM: 01:57 Medical Screening Exam initiated cp 03:18 Data reviewed: vital signs, nurses notes, lab test result(s), and as a result, I will cp discharge patient. 03:18 Differential diagnosis: chronic back pain, Pyelonephritis ruptured disc, cp Ureterolithiasis sciatica, radiculopathy. I considered the following discharge prescriptions or medication management in the emergency department Medications were administered in the Emergency Department. See MAR. Care significantly affected by the following chronic conditions: Diabetes, Hypertension, Obesity. Counseling: I had a detailed discussion with the patient and/or guardian regarding the historical points, exam findings, and any diagnostic results supporting the discharge/admit diagnosis, lab results, to return to the emergency department if symptoms worsen or persist or if there are any questions or concerns that arise at home. Response to treatment: the patient's symptoms have mildly improved after treatment, and as a result, I will discharge patient. 12/27 02:10 Order name: UA Rfx Elio Cult if indicated; Complete Time: 02:34 cp 12/27 02:34 Interpretation: Reviewed. cp 12/27 02:10 Order name: UA Rfx Elio Cult if indicated vc1 12/27 02:10 Order name: Test, Urine; Complete Time: 02:34 vc1 Administered Medications: 03:15 Drug: HYDROcodone-acetaminophen PO 10 mg-325 mg 1 tabs PO once Route: PO; vc1 03:15 Drug: Methocarbamol PO 750 mg PO once Route: PO; vc1 03:15 Drug: Ketorolac IM 30 mg IM once Route: IM; Site: left deltoid; vc1 Disposition: 12/28 01:54 Chart complete. cp Disposition Summary: 12/27/24 03:19 Discharge Ordered Notes: Location: Home cp Problem: new cp Symptoms: have improved cp Condition: Stable cp Diagnosis - Lumbago with sciatica, right side cp Followup: cp - With: Private Physician - When: 2 - 3 days - Reason: Worsening of condition Discharge Instructions: - Discharge Summary Sheet cp - Chronic Back Pain cp - Sciatica cp - Back Exercises cp Forms: - Medication Reconciliation Form cp - Antibiotic Education cp - Prescription Opioid Use cp - Patient Portal Instructions cp - Leadership Thank You Letter cp Prescriptions: - Diclofenac Sodium 75 mg Oral Tablet Sustained Release - take 1 tablet ORAL route 2 times per day; 30 tablet; Refills: 0, Product cp Selection Permitted - methocarbamol 500 mg Oral tablet - take 2 tablets ORAL route every 6-8 hours; 30 tablet; Refills: 0, Product cp Selection Permitted Signatures: Dispatcher [employer] EDSherif Adair PA PA cp [place], Vanessa RN RN vc1
--- NOTE | 2024-12-27 03:20 | ER ---
Nurse's Notes [facility] Name: Gregorio Szymanski Age: 29 yrs Sex: Female : 1995 Arrival Date: 12/27/2024 Time: 01:26 Bed DX3 Private MD: Diagnosis: Lumbago with sciatica, right side Presentation: 12/27 01:54 Chief complaint: Patient states: severe lower back pain that started around 11pm, with vc1 nausea. Coronavirus screen: Client denies travel out of the [place] in the last 14 days. At this time, the client does not indicate any symptoms associated with coronavirus-19. Ebola Screen: Patient negative for fever greater than or equal to 101.5 degrees Fahrenheit, and additional compatible Ebola Virus Disease symptoms Patient denies exposure to infectious person. Patient denies travel to an Ebola-affected area in the 21 days before illness onset. No symptoms or risks identified at this time. Initial Sepsis Screen: Does the patient meet any 2 criteria? No. Patient's initial sepsis screen is negative. Does the patient have a suspected source of infection? No. Patient's initial sepsis screen is negative. Risk Assessment: Do you want to hurt yourself or someone else? Patient reports no desire to harm self or others. Onset of symptoms was December 26, 2024 at 23:00. Care prior to arrival: Medication(s) given: Motrin, tiazidine. 01:54 Method Of Arrival: Ambulatory vc1 01:54 Acuity: DENZEL 4 vc1 Triage Assessment: 02:00 General: Appears in no apparent distress. uncomfortable, obese, Behavior is calm, vc1 cooperative, appropriate for age. Pain: Complains of pain in low back area Pain radiates to right leg and left leg Pain currently is 7 out of 10 on a pain scale. Quality of pain is described as burning, stinging, Pain began suddenly, Noted to be resistant to movement. EENT: No deficits noted. No signs and/or symptoms were reported regarding the EENT system. Neuro: Level of Consciousness is awake, alert, obeys commands, Oriented to person, place, time, situation, Appropriate for age. Cardiovascular: Capillary refill < 3 seconds Patient's skin is warm and dry. Respiratory: Airway is patent Respiratory effort is even, unlabored, Respiratory pattern is regular, symmetrical. GI: No deficits noted. No signs and/or symptoms were reported involving the gastrointestinal system. : No deficits noted. No signs and/or symptoms were reported regarding the genitourinary system. Derm: Skin is intact, is healthy with good turgor, Skin is dry, Skin is normal, Skin temperature is warm. Musculoskeletal: Circulation, motion, and sensation intact. Range of motion: intact in all extremities. 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 - Infectious Disease History:: Denies. - Social history:: Smoking status: Patient denies any tobacco usage or history of. Screenin:56 [facility] ED Fall Risk Assessment (Adult) History of falling in the last 3 months, vc1 including since admission No falls in past 3 months (0 pts) Confusion or Disorientation No (0 pts) Intoxicated or Sedated No (0 pts) Impaired Gait No (0 pts) Mobility Assist Device Used No (0 pt) Altered Elimination No (0 pt) Score/Fall Risk Level 0 - 2 = Low Risk Oriented to surroundings, Maintained a safe environment, Hourly rounding (assess needs \T\ fall precautionary measures) done. Abuse screen: Denies threats or abuse. Nutritional screening: No deficits noted. Tuberculosis screening: No symptoms or risk factors identified. Assessment: 03:44 Reassessment: Patient appears in no apparent distress at this time. No changes from vc1 previously documented assessment. Patient and/or family updated on plan of care and expected duration. Pain level reassessed. Patient is alert, oriented x 3, equal unlabored respirations, skin warm/dry/pink. Vital Signs: 01:54 Weight 188.24 kg; Height 5 ft. 4 in. ; Pain 7/10; vc1 01:57 BP 178 / 101; Pulse 114; Resp 20; Temp 99; Pulse Ox 100% ; vc1 03:43 BP 168 / 99; Pulse 104; Resp 20; Pulse Ox 98% ; vc1 01:54 Body Mass Index 71.23 (188.24 kg, 162.56 cm) vc1 01:54 Pain Scale: Adult vc1 ED Course: 01:29 Patient arrived in ED. mr 01:33 Sherif Brooks PA is PHCP. cp 01:34 Sherif Combs MD is Attending Physician. cp 01:55 Triage completed. vc1 01:56 Arm band placed on right wrist. vc1 01:57 Patient has correct armband on for positive identification. Provided Education on: Plan vc1 of care. 02:19 Test, Urine Sent. vc1 02:20 UA Rfx Elio Cult if indicated Sent. vc1 03:42 Mariella Gupta, RN is Primary Nurse. vc1 03:42 No provider procedures requiring assistance completed. Patient did not have IV access vc1 during this emergency room visit. Administered Medications: 03:15 Drug: HYDROcodone-acetaminophen PO 10 mg-325 mg 1 tabs PO once Route: PO; vc1 03:15 Drug: Methocarbamol PO 750 mg PO once Route: PO; vc1 03:15 Drug: Ketorolac IM 30 mg IM once Route: IM; Site: left deltoid; vc1 Medication: 01:57 VIS not applicable for this client. vc1 Outcome: 03:19 Discharge ordered by MD. cp 03:43 Discharged to home ambulatory, with significant other, vc1 03:43 Condition: stable 03:43 Discharge instructions given to patient, Instructed on discharge instructions, follow up and referral plans. medication usage, Demonstrated understanding of instructions, follow-up care, medications, Prescriptions given X 2, 03:44 Patient left the ED. vc1 Signatures: Kenya Velasquez, Reg Reg mr Sherif Brooks PA PA cp Mariella Gupta, RN RN vc1
[2024-12-27 04:13] VITALS: TEMP 99
[2024-12-27 04:16] VITALS: BP 168/99; O2SAT 98
== END 2024-12-27 03:44 | disposition home or self-care (01) ==
LOC: ER 01:26
DX: M54.41 Lumbago with sciatica, right side (principal)
CPT/HCPCS: 81001; 81025; 96372; 99284